=== PATIENT | male | born 1960 | race Caucasian/White ===

== ENCOUNTER → 2016-10-15 | Outpatient (CLI) | payer OTHER, BC ==
[2016-10-15 12:43] LABS: Basophils # (auto) 0 uL; Basophils % (auto) 0.4 % (0.0-2.0); Eosinophils # (auto) 0.2 uL; Eosinophils % (auto) 3.6 % (0.0-7.0); Hematocrit 44.2 % (41.0-53.0); Lymphocytes # (auto) 1.1 uL; Lymphocytes % (auto) 22.1 % (10.0-50.0); Mean Corpuscular Hemoglobin 29.1 pg (28.0-32.0); Mean Corpuscular Hgb Conc. 33.9 g/dL (32.0-36.0); Mean Corpuscular Volume 85.9 fL (80.0-100.0); Mean Platelet Volume 10.1 fL (7.4-10.4); Monocytes # (auto) 0.4 uL; Monocytes % (auto) 7.7 % (0.0-12.0); Neutrophils # (auto) 3.2 uL; Neutrophils % (auto) 66.2 % (37.0-80.0); Platelet Count (auto) 171 10^3/uL (140-450); Red Cell Distribution Width 13.2 % (11.6-16.0); White Blood Cell 4.8 10^3/uL (4.4-10.8)
[2016-10-15 12:48] LABS: Urine Bilirubin Negative (Negative); Urine Color Yellow (Yellow); Urine Glucose Normal (Normal); Urine Ketone Negative (Negative); Urine Nitrite Negative (Negative); Urine Urobilinogen Normal (Negative); Urine pH 5.5 (5.0-8.0)
[2016-10-15 13:04] LABS: Urine Blood 1+ /uL (Negative)
[2016-10-15 14:14] LABS: Albumin 3.9 g/dL (3.4-5.0); BUN/Creatinine Ratio 16.5; Calcium 8.7 mg/dL (8.5-10.1); Potassium 4.1 mmol/L (3.5-5.1); Total Protein 7.3 g/dL (6.4-8.2)
[2016-10-15 14:21] LABS: Bilirubin, Direct 0.3 mg/dL (0-0.2)
== END | disposition home or self-care (01) ==
LOC: LAB 08:45
PROVIDERS: ATTEND Internal Medicine Cardiovascular Disease
DX: I10 Essential (primary) hypertension (principal); E78.00 Pure hypercholesterolemia, unspecified; K74.1 Hepatic sclerosis; E11.9 Type 2 diabetes mellitus without complications; R97.20 Elevated prostate specific antigen [PSA]; R53.81 Other malaise; E03.9 Hypothyroidism, unspecified; D64.9 Anemia, unspecified; E55.9 Vitamin D deficiency, unspecified; N39.0 Urinary tract infection, site not specified
CPT/HCPCS: 36415; 80048; 80061; 80076; 81003; 82306; 83036; 84153; 84403; 84439; 84443; 85025

== ENCOUNTER → 2016-10-27 | Outpatient (CLI) | payer BC | END | disposition home or self-care (01) | LOC: Rad HDHVI 09:27 | PROVIDERS: ATTEND Internal Medicine Cardiovascular Disease | DX: I10 Essential (primary) hypertension (principal); J44.9 Chronic obstructive pulmonary disease, unspecified; N40.0 Benign prostatic hyperplasia without lower urinary tract symptoms; E78.00 Pure hypercholesterolemia, unspecified; Z86.73 Personal history of transient ischemic attack (TIA), and cerebral infarction without residual deficits | CPT/HCPCS: 93306; 93880 ==

== ENCOUNTER → 2017-05-27 | Outpatient (CLI) | payer BC | END | disposition home or self-care (01) | LOC: Rad HDHVI 08:52 | PROVIDERS: ATTEND Internal Medicine Cardiovascular Disease | DX: I10 Essential (primary) hypertension (principal); I27.20 Pulmonary hypertension, unspecified | CPT/HCPCS: 93306 ==

== ENCOUNTER → 2017-11-18 | Outpatient (CLI) | payer BC ==
[2017-11-18 12:21] LABS: Basophils # (auto) 0 uL; Basophils % (auto) 0.9 % (0.0-2.0); Eosinophils # (auto) 0.2 uL; Eosinophils % (auto) 3.3 % (0.0-7.0); Hematocrit 42.8 % (41.0-53.0); Hemoglobin 14.9 g/dL (13.5-17.5); Lymphocytes # (auto) 1.2 uL; Lymphocytes % (auto) 26.5 % (10.0-50.0); Mean Corpuscular Hemoglobin 29.8 pg (28.0-32.0); Mean Corpuscular Hgb Conc. 34.8 g/dL (32.0-36.0); Mean Corpuscular Volume 85.6 fL (80.0-100.0); Monocytes # (auto) 0.4 uL; Neutrophils # (auto) 2.8 uL; Neutrophils % (auto) 60.3 % (37.0-80.0); Nucleated Red Blood Cells % 0.5 %; Platelet Count (auto) 141 10^3/uL (140-450); Red Cell Distribution Width 13.3 % (11.8-14.3); White Blood Cell 4.6 10^3/uL (4.4-10.8)
[2017-11-18 12:37] LABS: Albumin 3.8 g/dL (3.4-5.0); BUN/Creatinine Ratio 16.3; Bilirubin, Direct 0.2 mg/dL (0-0.2); Bilirubin, Total 0.6 mg/dL (0.2-1.0); Calcium 8.6 mg/dL (8.5-10.1); Potassium 4.3 mmol/L (3.5-5.1); Total Protein 7.7 g/dL (6.4-8.2)
== END | disposition home or self-care (01) ==
LOC: LAB 10:09
PROVIDERS: ATTEND Internal Medicine Cardiovascular Disease
DX: E78.5 Hyperlipidemia, unspecified (principal); D64.9 Anemia, unspecified; E11.9 Type 2 diabetes mellitus without complications; E03.9 Hypothyroidism, unspecified; R53.81 Other malaise; R97.20 Elevated prostate specific antigen [PSA]; J44.9 Chronic obstructive pulmonary disease, unspecified; E78.00 Pure hypercholesterolemia, unspecified
CPT/HCPCS: 36415; 80048; 80061; 80076; 82306; 83036; 84153; 84403; 84443; 85025

== ENCOUNTER → 2018-08-16 | Outpatient (CLI) | payer BC ==
[~2018-08-16] MED LIST: IOHEXOL 350 MG/ML 100ML IJ ONE
[2018-08-16 15:29] VITALS: BP 129/80
[2018-08-16 15:56] VITALS: BP 127/84
== END | disposition home or self-care (01) ==
LOC: Rad HDHVI 15:20
PROVIDERS: ATTEND Internal Medicine Cardiovascular Disease
DX: J98.11 Atelectasis (principal); K76.0 Fatty (change of) liver, not elsewhere classified
CPT/HCPCS: 71260; 82565; G0463; Q9967

== ENCOUNTER → 2020-01-10 | Outpatient (CLI) | payer BC ==
[~2020-01-10] VITALS: Ht 167.6 cm; Wt 101.2 kg
== END | disposition home or self-care (01) ==
LOC: Rad HDHVI 08:01
PROVIDERS: ATTEND Internal Medicine Cardiovascular Disease
DX: R06.02 Shortness of breath (principal); I10 Essential (primary) hypertension; E78.5 Hyperlipidemia, unspecified; Z82.49 Family history of ischemic heart disease and other diseases of the circulatory system
CPT/HCPCS: 78452; 93017; 93306; 96374; A9500

== ENCOUNTER → 2020-09-05 | Outpatient (CLI) | payer BC | END | disposition home or self-care (01) | LOC: Rad HDHVI 10:17 | PROVIDERS: ATTEND Internal Medicine Cardiovascular Disease | DX: J90 Pleural effusion, not elsewhere classified (principal); R06.02 Shortness of breath | CPT/HCPCS: 71046 ==

== ENCOUNTER → 2021-01-21 | Outpatient (CLI) | payer BC ==
[2021-01-21 11:39] LABS: Basophils # (auto) 0.1 10 ^3/uL (0-0.2); Basophils % (auto) 1.3 % (0.0-2.0); Eosinophils # (auto) 0.2 10 ^3/uL (0-0.8); Eosinophils % (auto) 2.3 % (0.0-7.0); Hematocrit 42.8 % (41.0-53.0); Hemoglobin 15.1 g/dL (13.5-17.5); Lymphocytes # (auto) 1.7 10 ^3/uL (0.4-5.4); Lymphocytes % (auto) 23.7 % (10.0-50.0); Mean Corpuscular Hemoglobin 29.8 pg (28.0-32.0); Mean Corpuscular Hgb Conc. 35.4 g/dL (32.0-36.0); Mean Corpuscular Volume 84.1 fL (80.0-100.0); Monocytes # (auto) 0.6 10 ^3/uL (0-1.3); Monocytes % (auto) 8.6 % (0.0-12.0); Neutrophils # (auto) 4.5 10 ^3/uL (1.6-8.6); Neutrophils % (auto) 64.1 % (37.0-80.0); Platelet Count (auto) 159 10^3/uL (140-450); Red Blood Cells 5.08 10^6/uL (4.5-5.90); Red Cell Distribution Width 13.8 % (11.8-14.3); White Blood Cell 7.1 10^3/uL (4.4-10.8)
[2021-01-21 11:41] LABS: Urine Blood TRACE /uL (Negative); Urine Specific Gravity 1.012 (1.001-1.035)
[2021-01-21 12:04] LABS: BUN/Creatinine Ratio 14.9; Bilirubin, Direct 0.3 mg/dL (0-0.2); Total Protein 7.6 g/dL (6.4-8.2)
== END | disposition home or self-care (01) ==
LOC: LAB 10:36
PROVIDERS: ATTEND Internal Medicine Cardiovascular Disease
DX: C61 Malignant neoplasm of prostate (principal); D51.3 Other dietary vitamin B12 deficiency anemia; I10 Essential (primary) hypertension; E11.9 Type 2 diabetes mellitus without complications; E55.9 Vitamin D deficiency, unspecified; D64.9 Anemia, unspecified; R00.2 Palpitations; R53.1 Weakness; R30.0 Dysuria
CPT/HCPCS: 36415; 80048; 80061; 80076; 81003; 82306; 83036; 84153; 84403; 84443; 85025

== ENCOUNTER → 2022-03-09 | Outpatient (CLI) | payer BC ==
[2022-03-09 08:18] VITALS: BP 136/79
[2022-03-09 08:44] VITALS: BP 125/76
== END | disposition home or self-care (01) ==
LOC: Rad HDHVI 08:09
PROVIDERS: ATTEND Internal Medicine Cardiovascular Disease
DX: R10.9 Unspecified abdominal pain (principal); Z84.1 Family history of disorders of kidney and ureter
CPT/HCPCS: 74177; G0463; Q9967

== ENCOUNTER 2024-12-13 08:45 | Inpatient (IN) | payer BC ==
[~2024-12-13] VITALS: Ht 167.6 cm; Wt 103.9 kg
--- NOTE | 2024-12-13 09:19 | ED.PDOC ---
Musculoskeletal HPI Comments 64 y/o M, with no prior medical history presents to the ED for CC of bilateral arm numbness. Patient states, that he has been experiencing bilateral arm numbness/tingling onset, [id number]. Patient comments, that numbness and tingling started in his fingertips and has now radiated upward into his shoulders. Patient endorses, seeing his PCP for symptoms and having an appointment with a neurologist however, symptoms have now intensified. Patient denies injury, trauma, or leg swelling. No other symptoms or modifying factors present at this time. Chief Complaint: Upper Extremity Time Seen by MD: 09:10 Primary Care Provider: CONG Diaz Notes: Nurses Notes, Medications, Allergies Allergies: Coded Allergies: NO KNOWN ALLERGIES (Verified , 12/08/09) Information Source: Patient Mode of Arrival: Ambulatory Location: Bilateral Extremity Location: Arm Timing: Months Prehospital treatment: None Severity: Moderate Able to Move Extremity: Yes Bear Weight: Fully Pain: None Circumstances: Spontaneous Onset of Symptoms: Spontaneous DVT Risk Factors: NONE Last Tetanus: Unknown Past Medical History PAST MEDICAL HISTORY: Denies Surgical History: Denies all surgeries Family History Family History: Unknown Social History Smoker: Non-Smoker Alcohol: Denies ETOH Use Drugs: Denies Drug Use Lives In: Home Constitutional: denies: chills, diaphoresis, fatigue, fever, malaise, sweats, weakness, others EENTM: denies: blurred vision, double vision, ear bleeding, ear discharge, ear drainage, ear pain, ear ringing, eye pain, eye redness, hearing loss, mouth pain, mouth swelling, nasal discharge, nose bleeding, nose congestion, nose pain, photophobia, tearing, throat pain, throat swelling, voice changes, others Respiratory: denies: cough, hemoptysis, orthopnea, SOB at rest, shortness of breath, SOB with excertion, stridor, wheezing, others Cardiovascular: denies: chest pain, dizzy spells, diaphoresis, Dyspnea on exertion, edema, irregular heart beat, left arm pain, lightheadedness, palpitations, PND, syncope, others Gastrointestinal: denies: abdomen distended, abdominal pain, blood streaked bowels, constipated, diarrhea, dysphagia, difficulty swallowing, hematemesis, melena, nausea, poor appetite, poor fluid intake, rectal bleeding, rectal pain, vomiting, others Genitourinary: denies: burning, dysuria, flank pain, frequency, hematuria, incontinence, penile discharge, penile sore, pain, testicle pain, testicle swelling, urgency, others Neurological: reports: numbness, tingling; denies: dizziness, fainting, headache, left sided numbness, left sided weakness, paresthesia, pre-existing deficit, right sided numbness, right sided weakness, seizure, speech problems, tremors, weakness, others Musculoskeletal: denies: back pain, gout, joint pain, joint swelling, muscle pain, muscle stiffness, neck pain, others Integumetry: denies: bruises, change in color, change in hair/nails, dryness, laceration, lesions, lumps, rash, wounds, others Allergic/Immunocompromised: denies: Difficulty Healing, Frequent Infections, Hives, Itching, others Hematologic/Lymphatic: denies: anemia, blood clots, easy bleeding, easy bruising, swollen glands, others Endocrine: denies: excessive hunger, excessive sweating, excessive thirst, excessive urination, flushing, intolerance to cold, intolerance to heat, unexplained weight gain, unexplained weight loss, others Psychiatric: denies: anxiety, bipolar disorder, depression, hopeless, panic disorder, schizophrenia, sleepless, suicidal, others All Other Systems: Reviewed and Negative Physical Exam General Appearance: No Apparent Distress, Normal HEENT: Normal ENT Inspection, Pharynx Normal Neck: Full Range of Motion, Non-Tender, Normal, Normal Inspection Respiratory: Chest Non-Tender, Lungs Clear, No Accessory Muscle Use, No Respiratory Distress, Normal Breath Sounds Cardiovascular: No Edema, No Murmur, No Gallop, Normal Peripheral Pulses, Regular Rate/Rhythm Breast Exam: Deferred Gastrointestinal: No Organomegaly, Non Tender, No Pulsatile Mass, Normal Bowel Sounds, Soft Genitalia: Deferred Pelvic: Deferred Rectal: Deferred Extremities: No calf tenderness, Normal capillary refill, Normal inspection, Normal range of motion, Non-tender, No pedal edema Musculoskeletal : Apperance: Normal Neurologic: Alert, senior project accountant II-XII nml as Tested, No Motor Deficits, Normal Affect, Normal Mood, No Sensory Deficits Cerebellar Function: Normal Reflexes: Normal Skin: Dry, Normal Color, Warm Lymphatic: No Adenopathy Was a procedure done? Was a procedure done?: No Differential Diagnosis EXT Differential Diagnosis: Compartment Syndrome, Neurovascular injury X-Ray, Labs, Meds, VS Vital Signs Date Time Temp Pulse Resp B/P (MAP) Pulse Ox O2 Delivery O2 Flow Rate FiO2 12/13/24 10:33 59 18 96 Room Air 12/13/24 10:28 98.0 59 18 138/84 (102) 96 98.0 12/13/24 08:52 98.2 59 18 127/93 (104) 98 98.2 Lab Test 12/13/24 10:07 12/13/24 09:15 Range/Units Urine Color Light-yellow Yellow Urine Clarity Clear Clear Urine pH 6.5 5.0-9.0 Urine Specific [place] 1.018 1.001-1.035 Urine Protein Negative Negative Urine Ketones Negative Negative Urine Blood Trace H Negative /uL Urine Nitrite Negative Negative Urine Bilirubin Negative Negative Urine Urobilinogen Normal Negative mg/dL Urine Leukocyte Esterase Negative Negative /uL Urine RBC 5 0 - 3 /hpf Urine Microscopic WBC < 1 0-3 /HPF Urine Squamous Epithelial Cells None seen <5 /hpf Urine Bacteria None seen None Seen /hpf Urine Mucus Few None Seen Urine Glucose Normal Normal mg/dL White Blood Count 7.0 4.4-10.8 10^3/uL Red Blood Count 5.38 4.5-5.90 10^6/uL Hemoglobin 15.8 13.5-17.5 g/dL Hematocrit 44.9 41.0-53.0 % Mean Corpuscular Volume 83.6 80.0-100.0 fL Mean Corpuscular Hemoglobin 29.3 28.0-32.0 pg Mean Corpuscular Hemoglobin Concent 35.1 32.0-36.0 g/dL Red Cell Distribution Width 13.7 11.8-14.3 % Platelet Count 157 140-450 10^3/uL Mean Platelet Volume 8.6 6.9-10.8 fL Neutrophils (%) (Auto) 68.6 37.0-80.0 % Lymphocytes (%) (Auto) 20.4 10.0-50.0 % Monocytes (%) (Auto) 8.0 0.0-12.0 % Eosinophils (%) (Auto) 2.1 0.0-7.0 % Basophils (%) (Auto) 0.9 0.0-2.0 % Neutrophils # (Auto) 4.8 1.6-8.6 10 ^3/uL Lymphocytes # (Auto) 1.4 0.4-5.4 10 ^3/uL Monocytes # (Auto) 0.6 0-1.3 10 ^3/uL Eosinophils # (Auto) 0.1 0-0.8 10 ^3/uL Basophils # (Auto) 0.1 0-0.2 10 ^3/uL Nucleated Red Blood Cells 0.1 % Sodium Level 140 136-145 mmol/L Potassium Level 4.1 3.5-5.1 mmol/L Chloride Level 107 98-107 mmol/L Carbon Dioxide Level 26 20-31 mmol/L Anion Gap 7 5-15 Blood Urea Nitrogen 12 9-23 mg/dL Creatinine 0.86 0.700-1.30 mg/dL Glomerular Filtration Rate Calc 98 >90 mL/min BUN/Creatinine Ratio 14.0 10.0-20.0 Serum Glucose 128 H 74-106 mg/dL Calcium Level 9.8 8.7-10.4 mg/dL Troponin I High Sensitivity < 3 L </=54 ng/L Time of 1ST Reevaluation: 09:40 Reevaluation 1ST: Unchanged Patient Education/Counseling: Diagnosis, Treatment Family Education/Counseling: No Family Present Departure 1 Departure Time of Disposition: 10:53 (Patient presents with bilateral upper extremity paresthesias. CT head is benign chest x-ray is benign labs seem benign. With the patient for further workup expert consultation) Impression: Primary Impression: Paresthesia of upper extremity Additional Impression: Generalized muscle weakness Disposition: ADMITTED INPATIENT Admit to: Med Surg Condition: Serious Critical Care Note Critical Care Time?: No Stability Stability form required: No Heart Score Heart Score: Heart Score Response (Comments) Value History N/A 0 EKG N/A 0 Age N/A 0 Risk Factors N/A 0 Troponin N/A 0 Total 0 I personally scribed for DEMETRIUS LIANG MD ([email or web address]) on 12/13/24 at 09:19. Electronically submitted by Sharita Shaw ([email or web address]). DEMETRIUS LIANG MD December 13, 2024 09:19
[2024-12-13 09:29] LABS: Basophils # (auto) 0.1 10 ^3/uL (0-0.2); Basophils % (auto) 0.9 % (0.0-2.0); Eosinophils # (auto) 0.1 10 ^3/uL (0-0.8); Eosinophils % (auto) 2.1 % (0.0-7.0); Hematocrit 44.9 % (41.0-53.0); Hemoglobin 15.8 g/dL (13.5-17.5); Lymphocytes # (auto) 1.4 10 ^3/uL (0.4-5.4); Lymphocytes % (auto) 20.4 % (10.0-50.0); Mean Corpuscular Volume 83.6 fL (80.0-100.0); Monocytes # (auto) 0.6 10 ^3/uL (0-1.3); Neutrophils # (auto) 4.8 10 ^3/uL (1.6-8.6); Neutrophils % (auto) 68.6 % (37.0-80.0); Nucleated Red Blood Cells % 0.1 %; Red Blood Cells 5.38 10^6/uL (4.5-5.90)
[2024-12-13 09:30] LABS: Mean Corpuscular Hemoglobin 29.3 pg (28.0-32.0); Mean Corpuscular Hgb Conc. 35.1 g/dL (32.0-36.0); Platelet Count (auto) 157 10^3/uL (140-450); Red Cell Distribution Width 13.7 % (11.8-14.3)
[2024-12-13 09:39] LABS: Chloride 107 mmol/L (98-107); Potassium 4.1 mmol/L (3.5-5.1); Sodium 140 mmol/L (136-145)
[2024-12-13 09:40] LABS: Anion Gap 7 (5-15); Calcium 9.8 mg/dL (8.7-10.4); Carbon Dioxide 26 mmol/L (20-31)
[2024-12-13 09:45] LABS: Blood Urea Nitrogen 12 mg/dL (9-23)
[2024-12-13 09:50] LABS: Glucose 128 mg/dL (74-106)
[2024-12-13 10:21] LABS: Urine Bacteria None Seen /hpf (None Seen)
[2024-12-13 10:36] LABS: Urine Blood TRACE /uL (Negative); Urine Clarity Clear (Clear); Urine Color Light-Yellow (Yellow); Urine Mucus FEW (None Seen); Urine Protein, UAD Negative (Negative); Urine Specific Gravity 1.018 (1.001-1.035); Urine Squamous Epithelial Cell None Seen /hpf (<5); Urine Urobilinogen Normal (Negative); Urine pH 6.5 (5.0-9.0)
[2024-12-13 10:40] LABS: Urine WBC < 1 /HPF (0-3)
--- NOTE | 2024-12-13 10:48 | DVH ---
EXAM: XY CHEST PORTABLE Indication: parasthesias Technique: Single frontal view of the chest was obtained Comparison: None FINDINGS: Lines and Tubes: None Lungs: No focal consolidation. Pleura: No effusion. No pneumothorax. Cardiomediastinal contours: Unremarkable Bones: No acute osseous abnormality. IMPRESSION: No acute cardiopulmonary disease.
--- NOTE | 2024-12-13 10:51 | DVH ---
EXAM: CT HEAD WITHOUT CONTRAST INDICATION: parasthesias TECHNIQUE: CT of the head without intravenous contrast. Radiation Dose : 1. Head: CT Dose: CTDI volume is 63.98 mGy. Dose-length product is 1260.54 mGy*cm The dose indicators for CT are the volume Computed Tomography (CT) Dose Index (CTDIvol) and the Dose Length Product (DLP), and are measured in units of mGy and mGy-cm, respectively. These indicators are not patient dose, but values generated from the CT scanner acquisition factors. The report includes radiation exposure data for exposures received during this examination. COMPARISON: None FINDINGS: There is no evidence of acute intracranial hemorrhage, extra-axial collection, mass effect, midline s hift, herniation or hydrocephalus. The ventricles, sulci and cisterns are age appropriate. The brar-white differentiation is intact. Patchy periventricular and subcortical white matter hypoattenuation is nonspecific but may be related to small vessel ischemic disease. Moderate mucosal opacification of the left maxillary sinus. The surrounding soft tissues and osseous structures are unremarkable. IMPRESSION: No acute intracranial abnormality. Moderate mucosal opacification of the left maxillary sinus. Radiation optimization: All CT scans at this facility use at least one of these dose optimization mode hniques: automated exposure control mA and/or kV adjustment per patient size (includes targeted exam s where dose is matched to clinical indication) or iterative reconstruction.
[2024-12-13] MEDS ORDERED: ONDANSETRON HCL 4 MG/2 ML VIAL IV PRN (11:15)
[2024-12-13] MEDS: cefTRIAXone 1GM/50ML D5W 50 ML IV SCH (11:15)
[2024-12-13] MEDS ORDERED: FIN5T PO (11:42)
[2024-12-13] MEDS ORDERED: AMLO1TAB22 PO (11:42)
[2024-12-13] MEDS ORDERED: METO-289 PO (11:42)
[2024-12-13] MEDS ORDERED: ZOLP10TA6 PO (11:42)
[2024-12-13] MEDS ORDERED: BUPR100T16 PO (11:42)
[2024-12-13] MEDS ORDERED: TERA1CAP50 PO (11:42)
--- NOTE | 2024-12-13 11:45 | DVHHP2 ---
History of Present Illness Reason for Visit: Bilateral upper extremity numbness History of Present Illness Maxi Hancock is a 64-year-old male with past medical history of hypertension, kidney stones, BPH and hernia repair who presents to the ED with bilateral upper arm numbness and tingling x1 month. He reports that he was given a contact for a neurologist, called him and stated that he would get back with him that was 2 weeks ago. Patient also states that he has been having a cough for 1 week with associated shoulder pain and productive yellow phlegm. He denies any recent sick contacts. Patient denies any recent trauma or injury, recent travels, recent ingestion of spoiled food, chest pain, shortness of breath, fever, chills, lightheadedness, weakness, dizziness, abdominal pain, nausea, or vomiting. Cardiovascular: HTN Past Medical History Kidney stones BPH Past Surgical History: Hernia Repair Family History: Cancer, Other (Mom with breast cancer and dad with ? ALS both ) Smoke: No ALCOHOL: none Drugs: None Lives: with Family Domestic Violence: Neg Review of Systems Respiratory: Cough Musculoskeletal: shoulder pain, hand pain Allergies: Coded Allergies: NO KNOWN ALLERGIES (Verified , 12/08/09) Medications Current Medications Medications Dose Ordered Sig/Tito Route Start Time Stop Time Status Last Admin Dose Admin Ceftriaxone Sodium 50 ml @ 100 mls/hr DAILY@09 IV 12/13/24 11:15 UNV Acetaminophen/ Hydrocodone Bitart 1 tab Q4HP PRN PO 12/13/24 11:15 UNV Ondansetron HCl 4 mg Q4HP PRN IV 12/13/24 11:15 UNV Acetaminophen 650 mg Q6HP PRN PO 12/13/24 11:15 UNV Exam Vital Signs Vital Signs Date Time Temp Pulse Resp B/P (MAP) Pulse Ox O2 Delivery O2 Flow Rate FiO2 12/13/24 10:33 59 18 96 Room Air 12/13/24 10:28 98.0 138/84 (102) 98.0 General Appearance: Alert, Oriented X3, Cooperative, No acute distress HEENT: Atraumatic, PERRLA, EOMI, Mucous membr. moist/pink Respiratory: Clear to auscultation, Normal air movement Cardiovascular: Normal S1, Normal S2, No murmurs Abdominal: Normal bowel sounds, Soft, No tenderness, No hepatospenomegaly Extremities: No clubbing, No cyanosis, Normal pulses Skin: No significant lesion Neuro: Normal gait, Normal speech, Strength at 5/5 X4 ext, Normal tone, Sensation intact Psych/Mental Status: Mental status NL, Mood NL Labs/Xrays Labs Test 12/13/24 10:07 12/13/24 09:15 Range/Units Urine Color Light-yellow Yellow Urine Clarity Clear Clear Urine pH 6.5 5.0-9.0 Urine Specific [place] 1.018 1.001-1.035 Urine Protein Negative Negative Urine Ketones Negative Negative Urine Blood Trace H Negative /uL Urine Nitrite Negative Negative Urine Bilirubin Negative Negative Urine Urobilinogen Normal Negative mg/dL Urine Leukocyte Esterase Negative Negative /uL Urine RBC 5 0 - 3 /hpf Urine Microscopic WBC < 1 0-3 /HPF Urine Squamous Epithelial Cells None seen <5 /hpf Urine Bacteria None seen None Seen /hpf Urine Mucus Few None Seen Urine Glucose Normal Normal mg/dL White Blood Count 7.0 4.4-10.8 10^3/uL Red Blood Count 5.38 4.5-5.90 10^6/uL Hemoglobin 15.8 13.5-17.5 g/dL Hematocrit 44.9 41.0-53.0 % Mean Corpuscular Volume 83.6 80.0-100.0 fL Mean Corpuscular Hemoglobin 29.3 28.0-32.0 pg Mean Corpuscular Hemoglobin Concent 35.1 32.0-36.0 g/dL Red Cell Distribution Width 13.7 11.8-14.3 % Platelet Count 157 140-450 10^3/uL Mean Platelet Volume 8.6 6.9-10.8 fL Neutrophils (%) (Auto) 68.6 37.0-80.0 % Lymphocytes (%) (Auto) 20.4 10.0-50.0 % Monocytes (%) (Auto) 8.0 0.0-12.0 % Eosinophils (%) (Auto) 2.1 0.0-7.0 % Basophils (%) (Auto) 0.9 0.0-2.0 % Neutrophils # (Auto) 4.8 1.6-8.6 10 ^3/uL Lymphocytes # (Auto) 1.4 0.4-5.4 10 ^3/uL Monocytes # (Auto) 0.6 0-1.3 10 ^3/uL Eosinophils # (Auto) 0.1 0-0.8 10 ^3/uL Basophils # (Auto) 0.1 0-0.2 10 ^3/uL Nucleated Red Blood Cells 0.1 % Sodium Level 140 136-145 mmol/L Potassium Level 4.1 3.5-5.1 mmol/L Chloride Level 107 98-107 mmol/L Carbon Dioxide Level 26 20-31 mmol/L Anion Gap 7 5-15 Blood Urea Nitrogen 12 9-23 mg/dL Creatinine 0.86 0.700-1.30 mg/dL Glomerular Filtration Rate Calc 98 >90 mL/min BUN/Creatinine Ratio 14.0 10.0-20.0 Serum Glucose 128 H 74-106 mg/dL Calcium Level 9.8 8.7-10.4 mg/dL Troponin I High Sensitivity < 3 L </=54 ng/L EXAM: CT HEAD WITHOUT CONTRAST INDICATION: parasthesias TECHNIQUE: CT of the head without intravenous contrast. Radiation Dose : 1. Head: CT Dose: CTDI volume is 63.98 mGy. Dose-length product is 1260.54 mGy*cm The dose indicators for CT are the volume Computed Tomography (CT) Dose Index (CTDIvol) and the Dose Length Product (DLP), and are measured in units of mGy and mGy-cm, respectively. These indicators are not patient dose, but values generated from the CT scanner acquisition factors. The report includes radiation exposure data for exposures received during this examination. COMPARISON: None FINDINGS: There is no evidence of acute intracranial hemorrhage, extra-axial collection, mass effect, midline shift, herniation or hydrocephalus. The ventricles, sulci and cisterns are age appropriate. The brar-white differentiation is intact. Patchy periventricular and subcortical white matter hypoattenuation is nonspecific but may be related to small vessel ischemic disease. Moderate mucosal opacification of the left maxillary sinus. The surrounding soft tissues and osseous structures are unremarkable. IMPRESSION: No acute intracranial abnormality. EXAM: XY CHEST PORTABLE Indication: parasthesias Technique: Single frontal view of the chest was obtained Comparison: None FINDINGS: Lines and Tubes: None Lungs: No focal consolidation. Pleura: No effusion. No pneumothorax. Cardiomediastinal contours: Unremarkable Bones: No acute osseous abnormality. IMPRESSION: No acute cardiopulmonary disease. Assessment/Plan Assessment/Plan Assessment Bilateral upper extremity numbness rule out stroke versus neuropathy Sinus bradycardia Obesity Cough with productive phlegm rule out pneumonia versus COVID versus influenza Probable sinusitis History of hypertension History of kidney stones History of BPH History of hernia repair Plan Admit to tele Influenza test COVID test UA CT head noted Chest x-ray noted Troponin negative Echo ordered UDS Mag level IV antibiotics-ceftriaxone Carotid duplex Antiemetics Pain management Diet Home medications reconciled DVT prophylaxis - SCDs PUD prophylaxis-not indicated no history of GERD or GI bleed Discussed plan of care with patient and nurse Counseled patient on lifestyle modifications, diet, and exercise Neurology consult by ED Plan discussed with: Patient My Orders Orders - SKYLER DE ANDA Procedure Category Date Status Time Echo 2d Mode Cardiac US 12/13/24 Logged DOP 11:15 Ceftriaxone 1gm/50ml PHA 12/13/24 Logged D5w (Rocephin) 11:15 Admit ADMIT 12/13/24 Transmitted 11:15 Allergies JEANNIE 12/13/24 In Process 11:15 Code Status CODE 12/13/24 Transmitted 11:15 Hydrocodone-Acet PHA 12/13/24 Logged 5/325mg Tab ([place] 11:15 Ondansetron Hcl PHA 12/13/24 Logged (Zofran) 11:15 Complete Blood Count LAB 12/14/24 Verified 04:00 Comprehensive LAB 12/14/24 Verified Metabolic Panel 04:00 Cardiac DIET 12/13/24 Transmitted Diet-2gna,Lofat,Lochol Lunch Acetaminophen Tablet PHA 12/13/24 Logged (Tylenol Tablet) 11:15 Sequential JEANNIE 12/13/24 In Process Compression Device Thyroid Stimulating LAB 12/13/24 Logged Hormone 11:15 Lipid Panel LAB 12/13/24 Logged 11:15 Magnesium LAB 12/13/24 Logged 11:15 Amlodipine Tablet PHA 12/14/24 Transmitted (Norvasc Tablet) 10:00 Finasteride Tablet PHA 12/14/24 Transmitted (Proscar Tablet) 10:00 Metoprolol Xl PHA 12/14/24 Transmitted Succinate (Toprol Xl) 10:00 Terazosin Hcl (Hytrin) PHA 12/14/24 Transmitted 10:00 (Nf) Bupropion Hcl PHA 12/14/24 Transmitted (Bupropion Hcl Er) 10:00 Date of Service: December 13, 2024 Billing Provider: SKYLER DE ANDA Common Visit Codes: [id number] INP/OBS CARE (HIGH) SKYLER DE ANDA [facility] December 13, 2024 11:45
[2024-12-13 12:13] LABS: Amphetamine Screen, Urine Neg (NEGATIVE); Barbiturate Scree,Urine Neg (NEGATIVE); Benzodiazephine Screen, Urine Neg (NEGATIVE); Cannabinoid Screen, Urine Neg (NEGATIVE); Cocaine Screen, Urine Neg (NEGATIVE); Opiate Scree,Urine Neg (NEGATIVE); Phencyclidine Screen, Urine Neg (NEGATIVE)
--- NOTE | 2024-12-13 13:20 | DVH ---
Carotid Duplex Date: 12/13/2024 12:29 PM Clinical History: bue numbness Comparison: None Technique: Duplex Doppler evaluation of the extracranial carotid and vertebral arteries including col or Doppler and spectral/pulsed waveform analysis was performed. Findings: RIGHT SIDE: The peak systolic velocities are 72 cm/s in the distal CCA and 81 cm/s in the proximal ICA.The ICA/CC A ratio is less than 1. The external carotid artery is patent with peak systolic velocity of 68 cm/s proximally. There is appropriate antegrade flow in the right vertebral artery. LEFT SIDE: The peak systolic velocities are 74 cm/s in the distal CCA and 100 cm/s in the proximal ICA.. The ICA /CCA ratio is less than 2. The external carotid artery is patent with peak systolic velocity of 85 cm/s proximally. There is appropriate antegrade flow in the left vertebral artery. Mild atherosclerotic vascular disease of the bilateral carotid arteries. IMPRESSION: No hemodynamically significant stenosis noted in the right carotid system. No hemodynamically significant stenosis noted in the left carotid system. Reference: Radiology 2003; 229:[id number]
[2024-12-13 14:10] LABS: COVID19 ANTIGEN SOFIA FIA NEGATIVE (NEGATIVE); Rapid Influenza A Negative (Negative); Rapid Influenza B Negative (Negative)
[2024-12-13] MEDS: ACETAMINOPHEN 325 MG TAB PO PRN (18:11)
[2024-12-13 18:20] VITALS: BP 139/75; PULSE 58; RESP 15; TEMP 98; O2SAT 97
[2024-12-13 19:30] VITALS: BP 139/75; PULSE 57; RESP 21; TEMP 97.5; O2SAT 98
[2024-12-13 21:00] VITALS: BP 139/75; PULSE 54; RESP 18; TEMP 97.3; O2SAT 97
[2024-12-13] MEDS: TERAZOSIN HCL 1 MG CAP PO SCH (21:23)
[2024-12-13] MEDS: FINASTERIDE 5 MG TAB PO SCH (21:23)
[2024-12-13 22:20] VITALS: PULSE 54
[2024-12-14] VITALS (8 sets, daily range): BP systolic 128–145; BP diastolic 69–82; PULSE 51–80; RESP 16–19; TEMP 97.6–97.9; O2SAT 95–99
[2024-12-14] MEDS: HYDROcodone-ACET 5/325MG TAB PO PRN (00:19)
[2024-12-14 07:24] LABS: Basophils # (auto) 0 10 ^3/uL (0-0.2); Basophils % (auto) 0.6 % (0.0-2.0); Eosinophils # (auto) 0.1 10 ^3/uL (0-0.8); Eosinophils % (auto) 1.8 % (0.0-7.0); Hematocrit 44.4 % (41.0-53.0); Hemoglobin 15.4 g/dL (13.5-17.5); Lymphocytes # (auto) 1.1 10 ^3/uL (0.4-5.4); Lymphocytes % (auto) 15.3 % (10.0-50.0); Mean Corpuscular Hemoglobin 29.1 pg (28.0-32.0); Mean Corpuscular Hgb Conc. 34.7 g/dL (32.0-36.0); Mean Corpuscular Volume 83.8 fL (80.0-100.0); Monocytes # (auto) 0.5 10 ^3/uL (0-1.3); Monocytes % (auto) 7.7 % (0.0-12.0); Neutrophils # (auto) 5.3 10 ^3/uL (1.6-8.6); Neutrophils % (auto) 74.6 % (37.0-80.0); Nucleated Red Blood Cells % 0.2 %; Platelet Count (auto) 152 10^3/uL (140-450); Red Blood Cells 5.29 10^6/uL (4.5-5.90); Red Cell Distribution Width 13.7 % (11.8-14.3)
[2024-12-14 07:40] LABS: Albumin 4.6 g/dL (3.2-4.8); Alkaline Phosphatase 81 U/L (46-116); Anion Gap 10 (5-15); Aspartate Aminotransferase 19 U/L (13-40); BUN/Creatinine Ratio 16.1 (10.0-20.0); Blood Urea Nitrogen 14 mg/dL (9-23); Calcium 9.9 mg/dL (8.7-10.4); Carbon Dioxide 23 mmol/L (20-31); Chloride 106 mmol/L (98-107); Sodium 139 mmol/L (136-145); Total Protein 7.4 g/dL (5.7-8.2)
[2024-12-14 07:45] LABS: Alanine Aminotransferase 43 U/L (7-40); Glucose 133 mg/dL (74-106)
[2024-12-14] MEDS: BUPROPION 100 MG PO SCH (08:36)
[2024-12-14] MEDS: amLODIPine BESYLATE 5 MG TAB PO SCH (08:39)
[2024-12-14] MEDS: METOPROLOL SUCCINATE XL 50 MG TAB PO SCH (08:41)
[2024-12-14] MEDS ORDERED: FINASTERIDE 5 MG TAB PO SCH (10:00)
[2024-12-14] MEDS ORDERED: TERAZOSIN HCL 1 MG CAP PO SCH (10:00)
--- NOTE | 2024-12-14 11:35 | DVHPN2 ---
Subjective Patient continues to report having bilateral upper extremity paresthesia. Patient was also reports have shooting pain down both shoulders when he sneezes and coughs. Reviewed: Care Plan, H&P, Labs, Medications Changes from previous H/P or p: No Changes General: Per HPI Respiratory: Cough Musculoskeletal: shoulder pain, hand pain Objective Vitals Vital Signs Date Time Temp Pulse Resp B/P (MAP) Pulse Ox O2 Delivery O2 Flow Rate FiO2 12/14/24 08:58 97.9 57 18 145/69 (94) 98 97.9 12/14/24 08:00 Room Air* 0 21 Intake/Output Intake and Output 12/14/24 07:00 Intake Total 400 ml Balance 400 ml Intake Oral 400 ml # Voids 1 General Appearance: Alert, Oriented X3, Cooperative, mild distress HEENT: Atraumatic, PERRLA Lungs: Clear to auscultation, Normal air movement Cardiovascular: Normal S1, Normal S2 Abdomen: Normal bowel sounds, Soft, No tenderness Musculoskeletal: Normal sensory function, Normal motor function Skin: Dry, Intact Psych/Mental Status: Mental status NL, Mood NL Medications Current Medications Medications Dose Ordered Sig/Tito Route Start Time Stop Time Status Last Admin Dose Admin Ceftriaxone Sodium 50 ml @ 100 mls/hr DAILY@09 IV 12/13/24 11:15 12/14/24 08:38 100 MLS/HR Acetaminophen/ Hydrocodone Bitart 1 tab Q4HP PRN PO 12/13/24 11:15 12/14/24 00:19 1 TAB Ondansetron HCl 4 mg Q4HP PRN IV 12/13/24 11:15 Acetaminophen 650 mg Q6HP PRN PO 12/13/24 11:15 12/13/24 18:11 650 MG Amlodipine Besylate 5 mg DAILY PO 12/14/24 10:00 12/14/24 08:39 5 MG Metoprolol Succinate 50 mg DAILY PO 12/14/24 10:00 12/14/24 08:41 50 MG Patient Own Medication 1 DAILY PO 12/14/24 10:00 Finasteride 5 mg HS PO 12/13/24 22:00 12/13/24 21:23 5 MG Terazosin HCl 1 mg HS PO 12/13/24 22:00 12/13/24 21:23 1 MG Laboratory Results Laboratory Tests 12/14/24 06:52 Chemistry Test 12/14/24 06:52 Albumin 4.6 g/dL (3.2-4.8) Calcium Level 9.9 mg/dL (8.7-10.4) Total Protein 7.4 g/dL (5.7-8.2) LFT Test 12/14/24 06:52 Alanine Aminotransferase (ALT) 43 U/L (7-40) H Alkaline Phosphatase 81 U/L (46-116) Aspartate Amino Transferase (AST) 19 U/L (13-40) Total Bilirubin 1.0 mg/dL (0.2-1.0) Urinalysis Test 12/13/24 10:07 Urine Color Light-yellow (Yellow) Urine Clarity Clear (Clear) Urine pH 6.5 (5.0-9.0) Urine Specific [place] 1.018 (1.001-1.035) Urine Protein Negative (Negative) Urine Ketones Negative (Negative) Urine Blood Trace /uL (Negative) H Urine Nitrite Negative (Negative) Urine Bilirubin Negative (Negative) Urine Urobilinogen Normal mg/dL (Negative) Urine Leukocyte Esterase Negative /uL (Negative) Urine RBC 5 /hpf (0 - 3) Urine Microscopic WBC < 1 /HPF (0-3) Urine Squamous Epithelial Cells None seen /hpf (<5) Urine Bacteria None seen /hpf (None Seen) Urine Mucus Few (None Seen) Urine Glucose Normal mg/dL (Normal) Labs and/or images reviewed: Labs reviewed by me, Image(s) reviewed by me Assessment/Plan Assessment/Plan Impression: -CVA ruled out -obesity -primary hypertension -BPH -probable cervical spinal stenosis -dyslipidemia Plan: -CT scan of the neck -continue Hytrin and finasteride -antihypertensives -further course of management per findings of CAT scan Total time spent with patient discussing and formulating plan of care: 35 minutes. This medical document was created using an electronic medical record system with [employer] dictation system. Although this document has been carefully reviewed, there may still be some phonetic and typographical errors. These areas are purely typographical due to imperfections of the software programs, and do not reflect any compromise in the patient's medical care. Plan discussed with: Patient, Other (RN) My Orders Orders - LIZ SCHMID [employer] Procedure Category Date Status Time Zolpidem Tartrate PHA 12/14/24 Transmitted (Ambien) 11:[address] 12/14/24 Transmitted Contrast 11:29 Date of Service: December 14, 2024 Billing Provider: LIZ SCHMID NP Common Visit Codes: [id number] INP/OBS CARE(HIGH) LIZ SCHMID NP December 14, 2024 11:35
--- NOTE | 2024-12-14 13:50 | DVH ---
Indication: Bilateral upper ext. paresthesia, rule out cervical stenosis Technique: CT axial images of the cervical spine are obtained without contrast. Coronal and sagittal reformats were obtained. Radiation Dose Information: CTDI volume is 22.55 mGy. Dose-length product is 570.04 mGy*cm Comparison: None FINDINGS: Cervical vertebral body heights maintained. Moderate multilevel disc space narrowing most pronounced at C4-5, C5-6 and C6-7. No prevertebral edema. [id number] facet hypertrophic changes. Atlant ooccipital, atlantoaxial articulations intact. 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 [id number] bilateral neural foraminal stenosis. C4-5: Moderate to advanced right and moderate left neural foraminal stenosis. C5-6: Moderate to advanced bilateral neural foraminal stenosis. C6-7: Moderate bilateral neural foraminal stenosis. C7-T1: No high-grade neural foraminal stenosis. There is a large disc protrusion /ventral epidural space lesion measuring 1.5 x 0.7 cm at the C3-4 le august. IMPRESSION: 1. Moderate cervical degenerative disc disease. 2. Large disc protrusion / ventral epidural space lesion at C3-4 which compresses upon the thecal sac / spinal cord resulting in spinal canal stenosis. Recommend MRI cervical spine with and without cont rast to further evaluate. 3. Multilevel neural foraminal stenosis as described.
[2024-12-14] MEDS: ZOLPIDEM TARTRATE 5 MG TAB PO PRN (21:38)
[2024-12-15] VITALS (8 sets, daily range): BP systolic 115–135; BP diastolic 66–76; PULSE 58–72; RESP 16–20; TEMP 97.2–97.9; O2SAT 95–97
--- NOTE | 2024-12-15 13:59 | DVHPN2 ---
Subjective still having parasthesia. ct with disc protrusoin. starting decadron, MRI c spine. Reviewed: Care Plan, H&P, Labs, Medications Changes from previous H/P or p: No Changes General: Per HPI Respiratory: Cough Musculoskeletal: shoulder pain, hand pain Objective Vitals Vital Signs Date Time Temp Pulse Resp B/P (MAP) Pulse Ox O2 Delivery O2 Flow Rate FiO2 12/15/24 11:58 97.4 60 16 120/76 (91) 97 97.4 12/15/24 08:00 Room Air* 0 21 Intake/Output Intake and Output 12/15/24 07:00 Intake Total 1390 ml Balance 1390 ml Intake Oral 1340 ml IV Total 50 ml # Voids 6 # Bowel Movements 1 General Appearance: Alert, Oriented X3, Cooperative, mild distress HEENT: Atraumatic, PERRLA Lungs: Clear to auscultation, Normal air movement Cardiovascular: Normal S1, Normal S2 Abdomen: Normal bowel sounds, Soft, No tenderness Musculoskeletal: Normal sensory function, Normal motor function Skin: Dry, Intact Psych/Mental Status: Mental status NL, Mood NL Medications Current Medications Medications Dose Ordered Sig/Tito Route Start Time Stop Time Status Last Admin Dose Admin Acetaminophen/ Hydrocodone Bitart 1 tab Q4HP PRN PO 12/13/24 11:15 12/15/24 10:06 1 TAB Ondansetron HCl 4 mg Q4HP PRN IV 12/13/24 11:15 Acetaminophen 650 mg Q6HP PRN PO 12/13/24 11:15 12/13/24 18:11 650 MG Amlodipine Besylate 5 mg DAILY PO 12/14/24 10:00 12/15/24 10:02 5 MG Metoprolol Succinate 50 mg DAILY PO 12/14/24 10:00 12/15/24 10:04 50 MG Patient Own Medication 1 DAILY PO 12/14/24 10:00 Finasteride 5 mg HS PO 12/13/24 22:00 12/14/24 21:38 5 MG Terazosin HCl 1 mg HS PO 12/13/24 22:00 12/14/24 21:41 1 MG Zolpidem Tartrate 10 mg HSPRN PRN PO 12/14/24 11:30 12/14/24 21:38 10 MG Dexamethasone Sodium Phosphate 6 mg DAILY IV 12/16/24 10:00 Laboratory Results Laboratory Tests 12/14/24 06:52 Urinalysis Test 12/13/24 10:07 Urine Color Light-yellow (Yellow) Urine Clarity Clear (Clear) Urine pH 6.5 (5.0-9.0) Urine Specific [place] 1.018 (1.001-1.035) Urine Protein Negative (Negative) Urine Ketones Negative (Negative) Urine Blood Trace /uL (Negative) H Urine Nitrite Negative (Negative) Urine Bilirubin Negative (Negative) Urine Urobilinogen Normal mg/dL (Negative) Urine Leukocyte Esterase Negative /uL (Negative) Urine RBC 5 /hpf (0 - 3) Urine Microscopic WBC < 1 /HPF (0-3) Urine Squamous Epithelial Cells None seen /hpf (<5) Urine Bacteria None seen /hpf (None Seen) Urine Mucus Few (None Seen) Urine Glucose Normal mg/dL (Normal) Assessment/Plan Assessment/Plan Impression: -CVA ruled out -obesity -primary hypertension -BPH -cervical spinal stenosis -dyslipidemia Plan: -CT scan of the neck -continue Hytrin and finasteride -antihypertensives -MRI c spine prn ativan for MRI decadron Plan discussed with: Patient My Orders Orders - JAYNE ZARATE MD Procedure Category Date Status Time Mri Neck W Out MRI 12/15/24 Logged Contrast 13:05 Dexamethasone PHA 12/16/24 In Process Injection (Decadron 10:00 Date of Service: December 15, 2024 Billing Provider: JAYNE ZARATE MD Common Visit Codes: [id number] INP/OBS CARE(HIGH) JAYNE ZARATE MD December 15, 2024 13:59
[2024-12-15] MEDS: DexAMETHasone SOD PHOS 10MG/1ML VIAL INJ IV ONE (14:29)
--- NOTE | 2024-12-15 18:27 | DVH ---
CLINICAL INFORMATION: 64 years old, Male; cervical myelopathy. TECHNIQUE: Multisequence multiplanar MRI images of the cervical spine were obtained without contrast . COMPARISON: CT CERVICAL WITHOUT CONTRAST on DOS: 12/14/24 FINDINGS: Bones: Straightening of the normal cervical lordosis. No significant spondylolisthesis. Vertebral bod y heights are maintained. Posterior elements are intact. No acute fracture. No focal suspicious marro w signal abnormality. Spinal cord: There is indentation of the spinal cord of the C3-C4 level due to the disc extrusion at this level. Mild t2/stir hyperintense signal of the spinal cord in this location, likely due to myel opathy. Paraspinal soft tissues: Paraspinal and prevertebral soft tissues are unremarkable. Other: No other significant findings. Cervical disc levels: C2-C3: Disc desiccation. Diffuse disc bulge mildly indenting the ventral aspect of the thecal sac an d congenital spinal canal narrowing, contributing to moderate spinal canal stenosis, closely approxim ating the ventral aspect of the spinal cord and partially effacing the lateral recesses. No significa nt neural foraminal stenosis. C3-C4: Disc desiccation with moderate disc space narrowing and central disc extrusion measuring up to 6.5 mm in AP dimension, 5.5 mm in transverse dimension, and 9.5 mm in craniocaudal dimension, abutti ng and indenting the ventral aspect of the spinal cord, with mild t2/stir hyperintense signal in the spinal cord consistent with myelopathy. Partial effacement of the lateral recesses. Facet and uncinat e hypertrophy with moderate to severe right and moderate left neural foraminal stenoses. C4-C5: Disc desiccation with moderate disc space narrowing diffuse disc bulge superimposed on congeni rochelle spinal canal narrowing, causing moderate spinal canal stenosis and effacement of the lateral rece sses. Facet and uncinate hypertrophy with severe right and moderate to severe left neural foraminal s tenoses. C5-C6: Disc desiccation with moderate disc space narrowing and diffuse disc bulge causing moderate sp inal canal stenosis, abutting the ventral aspect of the spinal cord and effacing the lateral recesses . Facet and uncinate hypertrophy with severe left and moderate to severe right neural foraminal steno ses. C6-C7: Disc desiccation with moderate disc space narrowing and diffuse disc bulge superimposed on con genital spinal canal narrowing, causing moderate spinal canal stenosis and partial effacement of the lateral recesses. Facet and uncinate hypertrophy with moderate to severe bilateral neural foraminal s tenoses. C7-T1: Disc desiccation with no significant spinal canal or neural foraminal stenosis. IMPRESSION: 1. Central disc extrusion at C3-C4 causing severe spinal canal stenosis, abutting and indenting the v entral aspect of the spinal cord. T2/stir hyperintense signal in the spinal cord at the C3-C4 level, likely due to myelopathy. 2. Additional degenerative disc disease and facet/ uncinate disease in the cervical spine with associ ated spinal canal, subarticular, and neural foraminal stenoses as detailed above. 3. There is a degree of congenital spinal canal narrowing contributing to the spinal canal stenoses. 4. Additional findings as detailed above.
--- NOTE | 2024-12-15 23:04 | DVHINCON2 ---
Date of service: December 15, [address] Fink Reason for Consultation Upper extremity numbness History of Present Illness Mr. Hancock is a 64 years old right-handed gentleman with a history of hypertension, BPH, he came to the hospital on 12/13/2024 with a chief company of numbness in both arms. At this time, he is alert and fully oriented, he provided the following history About 1-2 months ago, he developed intermittent tingling and numbness in bilateral three video fingers, for about one month, the symptoms in the left upper extremity has been constant, and the paresthesia spread to whole left upper extremity below the shoulder. For about one week, the intermittent tingling/numbness in the right hand has spread to the elbow. He was symptoms worse when he is driving or holding something in the hand, he was feel weaker in the hand For 2-3 years, the patient was has intermittent intense neck pain, 8-10/10, sometimes has pain shooting into both shoulders when he was coughing He was no difficulty with bowel/bladder control Urinalysis, 12/13/2024: Unremarkable UDS, 12/13/2024: Negative CBC, 12/14/2024: Unremarkable CMP, 12/14/2024: Unremarkable TG/HDL/LDL/HDL, 12/13/2024: 81/138/100/34 TSH, 12/13/2024: 1.1 CT head, 12/13/2024: No acute intracranial abnormality. Moderate mucosal opacification of the left maxillary sinus MRI C-spine, 12/15/2024: 1. Central disc extrusion at C3-C4 causing severe spinal canal stenosis, abutting and indenting the ventral aspect of the spinal cord. T2/stir hyperintense signal in the spinal cord at the C3-C4 level, likely due to myelopathy. 2. Additional degenerative disc disease and facet/ uncinate disease in the cervical spine with associated spinal canal, subarticular, and neural foraminal stenoses as detailed above. 3. There is a degree of congenital spinal canal narrowing contributing to the spinal canal stenoses. 4. Additional findings as detailed above Past Medical History Hypertension, BPH Past Surgical History Hernia repair, bilateral knee surgery Family History: Alcoholism G8 BROTHER Diabetes mellitus G8 MOTHER FH: ALS (amyotrophic lateral sclerosis) G8 FATHER Hypertension G8 MOTHER G8 SISTER Family History Hypertension, Diabetes Social History He was a tobacco smoker, but denies a history of alcohol or recreational substance abuse Allergies: Coded Allergies: Tamsulosin (Verified Allergy, Mild, 12/13/24) Home Meds Reported Medications Terazosin HCl (Terazosin Hydrochloride) 1 Mg Cap, 1 CAP PO HS 12/13/24 Zolpidem Tartrate (Zolpidem Tartrate) 10 Mg Tab, 1 TAB PO QHSP PRN 12/13/24 Bupropion Hcl (Bupropion Hcl Er) 100 Mg Tab, 1 TAB PO DAILY 12/13/24 Amlodipine Besylate (Amlodipine Besylate) 5 Mg Tab, 1 TAB PO DAILY 12/13/24 Finasteride (Finasteride) 5 Mg Tab, 1 TAB PO HS 12/13/24 Metoprolol Succinate (Metoprolol Succinate Er) 50 Mg Tab, 1 TAB PO DAILY 12/13/24 Current Medications Current Medications Medications (Trade) Dose Ordered Sig/Tito Route PRN Reason Start Time Stop Time Status Last Admin Dexamethasone Sodium Phosphate (Decadron Injection) 6 mg DAILY IV 12/16/24 10:00 Review of Systems As above, the other systems are negative Vital Signs Vital Signs Date Time Temp Pulse Resp B/P (MAP) Pulse Ox O2 Delivery O2 Flow Rate FiO2 12/15/24 21:23 124/74 12/15/24 21:00 97.8 72 19 96 97.8 12/15/24 08:00 Room Air* 0 21 Physical Exam GENERAL EXAM: General: the patient is well developed and nourished. No acute distress. HEENT: Normocephalic, neck is supple, no carotid bruits. No mass. RESPIRATORY: Normal respiratory effort with symmetrical lung expansion. Lungs clear to auscultation. CARDIOVASCULAR: Regular rate and rhythm with no murmurs. S1, S2. ABDOMEN: Soft, nontender, normal bowel sound MUSCULOSKELETAL EXAM: No tenderness in the cervical spine. No Tinel's sign in the wrist NEUROLOGICAL: MENTAL STATUS: Awake and alert. Oriented to person, place, time and general circumstances. Able to give personal history. SPEECH, LANGUAGE, HIGHER CORTICAL FUNCTION: no aphasia or dysathria. CRANIAL NERVES: #2: Intact visual zamorano to confrontation. The optic discs were sharp. #3,4,6: Pupils are equal, round and reactive. EOMs full and conjugate. No nystagmus. #5: Facial sensation intact in all three divisions bilaterally. Mandibular strength intact. #7: Facial muscles symmetrical and strength intact. #8: Hearing grossly normal to voice. #9,10: Uvula and soft palate rise in the midline. Swallow and voice are normal. #11: Trapezius and sternomastoid strength intact bilaterally. #12: Tongue midline. No fasciculations or atrophy. SENSATION: Sensation to touch and pinprick is diminished in bilateral three radial fingers MOTOR: Normal tone in the upper and lower extremity. Normal muscle bulk. No fasciculations. No abnormal movements or posturing. Muscle strength of the major groups in the upper extremities is 5/5. Muscle strength of the major groups in the lower extremities is 5/5. REFLEXES: Deep tendon reflexes normal and symmetrical. No pathological reflexes. CEREBELLAR/COORDINATION: Finger to nose is normal bilaterally. GAIT/STATION: deferred. Labs/Diagnostic Data Labs Test 12/14/24 06:52 12/13/24 13:35 12/13/24 10:07 12/13/24 09:15 Range/Units White Blood Count 7.0 4.4-10.8 10^3/uL Red Blood Count 5.29 4.5-5.90 10^6/uL Hemoglobin 15.4 13.5-17.5 g/dL Hematocrit 44.4 41.0-53.0 % Mean Corpuscular Volume 83.8 80.0-100.0 fL Mean Corpuscular Hemoglobin 29.1 28.0-32.0 pg Mean Corpuscular Hemoglobin Concent 34.7 32.0-36.0 g/dL Red Cell Distribution Width 13.7 11.8-14.3 % Platelet Count 152 140-450 10^3/uL Mean Platelet Volume 8.9 6.9-10.8 fL Neutrophils (%) (Auto) 74.6 37.0-80.0 % Lymphocytes (%) (Auto) 15.3 10.0-50.0 % Monocytes (%) (Auto) 7.7 0.0-12.0 % Eosinophils (%) (Auto) 1.8 0.0-7.0 % Basophils (%) (Auto) 0.6 0.0-2.0 % Neutrophils # (Auto) 5.3 1.6-8.6 10 ^3/uL Lymphocytes # (Auto) 1.1 0.4-5.4 10 ^3/uL Monocytes # (Auto) 0.5 0-1.3 10 ^3/uL Eosinophils # (Auto) 0.1 0-0.8 10 ^3/uL Basophils # (Auto) 0 0-0.2 10 ^3/uL Nucleated Red Blood Cells 0.2 % Sodium Level 139 136-145 mmol/L Potassium Level 4.0 3.5-5.1 mmol/L Chloride Level 106 98-107 mmol/L Carbon Dioxide Level 23 20-31 mmol/L Anion Gap 10 5-15 Blood Urea Nitrogen 14 9-23 mg/dL Creatinine 0.87 0.700-1.30 mg/dL Glomerular Filtration Rate Calc 98 >90 mL/min BUN/Creatinine Ratio 16.1 10.0-20.0 Serum Glucose 133 H 74-106 mg/dL Calcium Level 9.9 8.7-10.4 mg/dL Total Bilirubin 1.0 0.2-1.0 mg/dL Aspartate Amino Transferase (AST) 19 13-40 U/L Alanine Aminotransferase (ALT) 43 H 7-40 U/L Alkaline Phosphatase 81 46-116 U/L Total Protein 7.4 5.7-8.2 g/dL Albumin 4.6 3.2-4.8 g/dL Influenza Type A Antigen Negative Negative Influenza Type B Antigen Negative Negative SARS-CoV-2 Antigen (Rapid) Negative NEGATIVE Urine Color Light-yellow Yellow Urine Clarity Clear Clear Urine pH 6.5 5.0-9.0 Urine Specific [place] 1.018 1.001-1.035 Urine Protein Negative Negative Urine Ketones Negative Negative Urine Blood Trace H Negative /uL Urine Nitrite Negative Negative Urine Bilirubin Negative Negative Urine Urobilinogen Normal Negative mg/dL Urine Leukocyte Esterase Negative Negative /uL Urine RBC 5 0 - 3 /hpf Urine Microscopic WBC < 1 0-3 /HPF Urine Squamous Epithelial Cells None seen <5 /hpf Urine Bacteria None seen None Seen /hpf Urine Mucus Few None Seen Urine Glucose Normal Normal mg/dL Urine Opiates Screen Neg NEGATIVE Urine Fentanyl Screen Neg NEGATIVE Urine Barbiturates Screen Neg NEGATIVE Urine Phencyclidine Screen Neg NEGATIVE Urine Amphetamines Screen Neg NEGATIVE Urine Benzodiazepines Screen Neg NEGATIVE Urine Cocaine Screen Neg NEGATIVE Urine Cannabinoids Screen Neg NEGATIVE Magnesium Level 2.0 1.6-2.6 mg/dL Troponin I High Sensitivity < 3 L </=54 ng/L Triglycerides Level 81 < 150 mg/dL Cholesterol Level 138 < 200 mg/dL LDL Cholesterol 100 H < 100 mg/dL HDL Cholesterol 34 L 40-59 mg/dL Thyroid Stimulating Hormone (TSH) 1.10 0.55-4.78 uIU/mL Assessment Bilateral carpal tunnel syndrome Cervical spinal stenosis Bilateral C4 radiculopathy with myelopathy evident in the MRI Plan/Recommendation Monitoring Supportive treatment Med surge Spine surgeon consultation Nocturnal carpal tunnel to the hands (address as outpatient) More recommendation per clinical course Prognosis: Poor This medical document was created using an electronic medical record system with [employer] dictation system. Although this document has been carefully reviewed, there may still be some phonetic and typographical errors. These areas are purely typographical due to imperfections of the software programs, and do not reflect any compromise in the patient's medical care. Plan discussed with: Patient, Other DANNI SALTER MD December 15, 2024 23:04
[2024-12-16 01:00] VITALS: BP 122/73; PULSE 78; RESP 19; TEMP 97.4; O2SAT 95
--- NOTE | 2024-12-16 02:00 | DVHSR ---
APPROVED REPORT EXAM: Two-dimensional and M-mode echocardiogram with Doppler and color Doppler. Blood Pressure: 130/78 mmHg INDICATION Dyspnea RISK FACTORS Height: 5'6", Weight: 220 DIMENSIONS LVDd5.3 (3.8-5.7cm)LA (2D)4.2 (1.9-4.0cm)Aortic Root3.5 (2.0-3.7cm) LVDs3.3 (2.5-4.0cm)LA (MM) (1.9-4.0cm)Aortic Cusp Exc2.0 (1.5-2.0cm) EF (%) 69.0 (55-70%)Rt. Atrium (1.9-4.0cm)Asc. Aorta3.0 cm IVSd0.9 (0.7-1.1cm)RV (D) (1.8-2.4cm) PWd1.0 (0.7-1.1cm) Mitral Valve MitralMitral Stenosis E wave0.58m/sMV Mean GR.mmHg A wave0.80m/sMV Peak GR.mmHg E/A ratio0.72D MVAcm2 DECEL [id number] 1/2 Timems Aortic Valve Aortic ValveAortic Stenosis V11.00m/Nayeli Mean GR.4mmHg V21.46m/Nayeli Peak GR.9mmHg LVOT Diameter2.4 (1.8-2.4cm)Doppler AVA3.10cm2 Pulmonic Valve V21.12m/s Conclusion NORMAL LV EF AND IS 65% NORMAL VALVES NORMAL RV FUNCTION NO EFFUSION
[2024-12-16 05:00] VITALS: BP 131/75; PULSE 83; RESP 20; TEMP 97.8; O2SAT 97
[2024-12-16 09:00] VITALS: BP 161/68; PULSE 93; RESP 18; TEMP 97.7; O2SAT 98
[2024-12-16] MEDS: DexAMETHasone SOD PHOS 10MG/1ML VIAL INJ IV SCH (09:14)
[2024-12-16 12:42] VITALS: BP 137/74; PULSE 67; RESP 20; TEMP 97.6; O2SAT 98
[2024-12-16 17:00] VITALS: BP 126/76; PULSE 76; RESP 18; TEMP 97.8; O2SAT 98
--- NOTE | 2024-12-16 18:22 | DVHPN2 ---
Subjective pending ortho spine consult, c/w decadneri mildy improving Reviewed: Care Plan, H&P, Labs, Medications Changes from previous H/P or p: No Changes General: Per HPI Respiratory: Cough Musculoskeletal: shoulder pain, hand pain Objective Vitals Vital Signs Date Time Temp Pulse Resp B/P (MAP) Pulse Ox O2 Delivery O2 Flow Rate FiO2 12/16/24 17:00 97.8 76 18 126/76 (93) 98 97.8 12/16/24 08:00 Room Air* 0 21 Intake/Output Intake and Output 12/16/24 07:00 Intake Total 2100 ml Output Total 800 ml Balance 1300 ml Intake Oral 2100 ml Output Urine Total 800 ml # Voids 2 # Bowel Movements 1 General Appearance: Alert, Oriented X3, Cooperative, mild distress HEENT: Atraumatic, PERRLA Lungs: Clear to auscultation, Normal air movement Cardiovascular: Normal S1, Normal S2 Abdomen: Normal bowel sounds, Soft, No tenderness Musculoskeletal: Normal sensory function, Normal motor function Skin: Dry, Intact Psych/Mental Status: Mental status NL, Mood NL Medications Current Medications Medications Dose Ordered Sig/Tito Route Start Time Stop Time Status Last Admin Dose Admin Acetaminophen/ Hydrocodone Bitart 1 tab Q4HP PRN PO 12/13/24 11:15 12/16/24 17:27 1 TAB Ondansetron HCl 4 mg Q4HP PRN IV 12/13/24 11:15 Acetaminophen 650 mg Q6HP PRN PO 12/13/24 11:15 12/13/24 18:11 650 MG Amlodipine Besylate 5 mg DAILY PO 12/14/24 10:00 12/16/24 09:15 5 MG Metoprolol Succinate 50 mg DAILY PO 12/14/24 10:00 12/16/24 09:15 50 MG Patient Own Medication 1 DAILY PO 12/14/24 10:00 Finasteride 5 mg HS PO 12/13/24 22:00 12/15/24 21:19 5 MG Terazosin HCl 1 mg HS PO 12/13/24 22:00 12/15/24 21:23 1 MG Zolpidem Tartrate 10 mg HSPRN PRN PO 12/14/24 11:30 12/15/24 22:43 10 MG Dexamethasone Sodium Phosphate 6 mg DAILY IV 12/16/24 10:00 12/16/24 09:14 6 MG Laboratory Results Laboratory Tests 12/14/24 06:52 Urinalysis Test 12/13/24 10:07 Urine Color Light-yellow (Yellow) Urine Clarity Clear (Clear) Urine pH 6.5 (5.0-9.0) Urine Specific [place] 1.018 (1.001-1.035) Urine Protein Negative (Negative) Urine Ketones Negative (Negative) Urine Blood Trace /uL (Negative) H Urine Nitrite Negative (Negative) Urine Bilirubin Negative (Negative) Urine Urobilinogen Normal mg/dL (Negative) Urine Leukocyte Esterase Negative /uL (Negative) Urine RBC 5 /hpf (0 - 3) Urine Microscopic WBC < 1 /HPF (0-3) Urine Squamous Epithelial Cells None seen /hpf (<5) Urine Bacteria None seen /hpf (None Seen) Urine Mucus Few (None Seen) Urine Glucose Normal mg/dL (Normal) Assessment/Plan Assessment/Plan Impression: -CVA ruled out -obesity -primary hypertension -BPH -cervical spinal stenosis -dyslipidemia Plan: -CT scan of the neck -continue Hytrin and finasteride -antihypertensives [facility] Plan discussed with: Patient Date of Service: December 16, 2024 Billing Provider: JAYNE ZARATE MD Common Visit Codes: [id number] INP/OBS CARE(HIGH) JAYNE ZARATE MD December 16, 2024 18:22
[2024-12-16 21:00] VITALS: BP 144/81; PULSE 68; RESP 19; TEMP 97.7; O2SAT 99
[2024-12-17] VITALS (8 sets, daily range): BP systolic 106–151; BP diastolic 68–84; PULSE 56–63; RESP 18–19; TEMP 97.6–98.6; O2SAT 95–100
[2024-12-17 08:10] LABS: Basophils # (auto) 0 10 ^3/uL (0-0.2); Basophils % (auto) 0.4 % (0.0-2.0); Eosinophils # (auto) 0 10 ^3/uL (0-0.8); Eosinophils % (auto) 0.1 % (0.0-7.0); Hematocrit 44.3 % (41.0-53.0); Hemoglobin 15.3 g/dL (13.5-17.5); Lymphocytes # (auto) 1.3 10 ^3/uL (0.4-5.4); Lymphocytes % (auto) 11.1 % (10.0-50.0); Mean Corpuscular Hemoglobin 28.8 pg (28.0-32.0); Mean Corpuscular Hgb Conc. 34.5 g/dL (32.0-36.0); Mean Corpuscular Volume 83.6 fL (80.0-100.0); Monocytes # (auto) 0.9 10 ^3/uL (0-1.3); Monocytes % (auto) 7.6 % (0.0-12.0); Neutrophils # (auto) 9.2 10 ^3/uL (1.6-8.6); Neutrophils % (auto) 80.8 % (37.0-80.0); Platelet Count (auto) 176 10^3/uL (140-450); Red Cell Distribution Width 13.8 % (11.8-14.3); White Blood Cell 11.4 10^3/uL (4.4-10.8)
[2024-12-17 08:26] LABS: Calcium 10.3 mg/dL (8.7-10.4); Chloride 106 mmol/L (98-107); Sodium 140 mmol/L (136-145)
[2024-12-17 08:27] LABS: Anion Gap 10 (5-15); Carbon Dioxide 24 mmol/L (20-31)
[2024-12-17 08:32] LABS: BUN/Creatinine Ratio 17.2 (10.0-20.0); Blood Urea Nitrogen 15 mg/dL (9-23)
[2024-12-17 08:34] LABS: Glucose 109 mg/dL (74-106)
--- NOTE | 2024-12-17 11:07 | DVHPN2 ---
Subjective Patient was denies any new symptoms. Reviewed: Care Plan, H&P, Labs, Medications Changes from previous H/P or p: No Changes General: Per HPI Respiratory: Cough Musculoskeletal: shoulder pain, hand pain Objective Vitals Vital Signs Date Time Temp Pulse Resp B/P (MAP) Pulse Ox O2 Delivery O2 Flow Rate FiO2 12/17/24 09:00 97.6 56 18 106/79 (88) 96 97.6 12/16/24 20:00 Room Air* 0 21 Intake/Output Intake and Output 12/17/24 07:00 Intake Total 2600 ml Balance 2600 ml Intake Oral 2600 ml # Voids 8 # Bowel Movements 1 General Appearance: Alert, Oriented X3, Cooperative, mild distress HEENT: Atraumatic, PERRLA Lungs: Clear to auscultation, Normal air movement Cardiovascular: Normal S1, Normal S2 Abdomen: Normal bowel sounds, Soft, No tenderness Musculoskeletal: Normal sensory function, Normal motor function Skin: Dry, Intact Psych/Mental Status: Mental status NL, Mood NL Medications Current Medications Medications Dose Ordered Sig/Tito Route Start Time Stop Time Status Last Admin Dose Admin Acetaminophen/ Hydrocodone Bitart 1 tab Q4HP PRN PO 12/13/24 11:15 12/16/24 21:35 1 TAB Ondansetron HCl 4 mg Q4HP PRN IV 12/13/24 11:15 Acetaminophen 650 mg Q6HP PRN PO 12/13/24 11:15 12/13/24 18:11 650 MG Amlodipine Besylate 5 mg DAILY PO 12/14/24 10:00 12/16/24 09:15 5 MG Metoprolol Succinate 50 mg DAILY PO 12/14/24 10:00 12/16/24 09:15 50 MG Patient Own Medication 1 DAILY PO 12/14/24 10:00 Finasteride 5 mg HS PO 12/13/24 22:00 12/16/24 21:35 5 MG Terazosin HCl 1 mg HS PO 12/13/24 22:00 12/16/24 21:35 1 MG Zolpidem Tartrate 10 mg HSPRN PRN PO 12/14/24 11:30 12/16/24 23:02 10 MG Dexamethasone Sodium Phosphate 6 mg DAILY IV 12/16/24 10:00 12/16/24 09:14 6 MG Laboratory Results Laboratory Tests 12/17/24 07:50 Chemistry Test 12/17/24 07:50 Calcium Level 10.3 mg/dL (8.7-10.4) Urinalysis Test 12/13/24 10:07 Urine Color Light-yellow (Yellow) Urine Clarity Clear (Clear) Urine pH 6.5 (5.0-9.0) Urine Specific [place] 1.018 (1.001-1.035) Urine Protein Negative (Negative) Urine Ketones Negative (Negative) Urine Blood Trace /uL (Negative) H Urine Nitrite Negative (Negative) Urine Bilirubin Negative (Negative) Urine Urobilinogen Normal mg/dL (Negative) Urine Leukocyte Esterase Negative /uL (Negative) Urine RBC 5 /hpf (0 - 3) Urine Microscopic WBC < 1 /HPF (0-3) Urine Squamous Epithelial Cells None seen /hpf (<5) Urine Bacteria None seen /hpf (None Seen) Urine Mucus Few (None Seen) Urine Glucose Normal mg/dL (Normal) Labs and/or images reviewed: Labs reviewed by me, Image(s) reviewed by me Assessment/Plan Assessment/Plan Impression: -CVA ruled out -obesity -primary hypertension -BPH -probable cervical spinal stenosis -dyslipidemia Plan: MRI of the cervical spine reviewed with the patient. Awaiting spinal surgery consultation. Further course of treatment per their recommendations. -continue BPH meds, antihypertensives Total time spent with patient discussing and formulating plan of care: 35 minutes. This medical document was created using an electronic medical record system with [employer] dictation system. Although this document has been carefully reviewed, there may still be some phonetic and typographical errors. These areas are purely typographical due to imperfections of the software programs, and do not reflect any compromise in the patient's medical care. Plan discussed with: Patient, Other (RN) Date of Service: December 17, 2024 Billing Provider: LIZ SCHMID NP Common Visit Codes: [id number] INP/OBS CARE(MOD) LIZ SCHMID NP December 17, 2024 11:07
--- NOTE | 2024-12-17 23:46 | DVHPN2 ---
Progress Note - Dictate Date Seen: December 17, 2024 Medical Necessity Reason Pt with a Central, PICC or Fol: No Subjective Mr. Hancock is a 64 years old right-handed gentleman with a history of hypertension, BPH, he came to the hospital on 12/13/2024 with a chief company of numbness in both arms. I have seen and examined the patient, I have discussed with his nurse, he was upset because spine team has not seen him yet, and he was a plan to go to the [facility] for a graduation I have advised him to try to stay as low as possible and they do not leave the hospital before spine team evaluation Urinalysis, 12/13/2024: Unremarkable UDS, 12/13/2024: Negative CBC, 12/14/2024: Unremarkable CMP, 12/14/2024: Unremarkable TG/HDL/LDL/HDL, 12/13/2024: 81/138/100/34 TSH, 12/13/2024: 1.1 CT head, 12/13/2024: No acute intracranial abnormality. Moderate mucosal opacification of the left maxillary sinus MRI C-spine, 12/15/2024: 1. Central disc extrusion at C3-C4 causing severe spinal canal stenosis, abutting and indenting the ventral aspect of the spinal cord. T2/stir hyperintense signal in the spinal cord at the C3-C4 level, likely due to myelopathy. 2. Additional degenerative disc disease and facet/ uncinate disease in the cervical spine with associated spinal canal, subarticular, and neural foraminal stenoses as detailed above. 3. There is a degree of congenital spinal canal narrowing contributing to the spinal canal stenoses. 4. Additional findings as detailed above vital signs Vital Sign Date Time Temp Pulse Resp B/P (MAP) Pulse Ox O2 Delivery O2 Flow Rate FiO2 12/17/24 21:20 133/78 12/17/24 21:00 98.6 60 18 98 98.6 12/17/24 08:00 Room Air* 0 21 Total Intake and Output 12/16/24 12/16/24 12/17/24 15:00 23:00 07:00 Intake Total 600 ml 1200 ml 800 ml Balance 600 ml 1200 ml 800 ml medications Current Medications Medications Dose Ordered Sig/Tito Route Start Time Stop Time Status Last Admin Dose Admin Acetaminophen/ Hydrocodone Bitart 1 tab Q4HP PRN PO 12/13/24 11:15 12/17/24 20:18 1 TAB Ondansetron HCl 4 mg Q4HP PRN IV 12/13/24 11:15 Acetaminophen 650 mg Q6HP PRN PO 12/13/24 11:15 12/13/24 18:11 650 MG Amlodipine Besylate 5 mg DAILY PO 12/14/24 10:00 12/17/24 11:07 5 MG Metoprolol Succinate 50 mg DAILY PO 12/14/24 10:00 12/17/24 11:08 50 MG Patient Own Medication 1 DAILY PO 12/14/24 10:00 Finasteride 5 mg HS PO 12/13/24 22:00 12/17/24 21:20 5 MG Terazosin HCl 1 mg HS PO 12/13/24 22:00 12/17/24 21:20 1 MG Zolpidem Tartrate 10 mg HSPRN PRN PO 12/14/24 11:30 12/17/24 22:59 10 MG Dexamethasone Sodium Phosphate 6 mg DAILY IV 12/16/24 10:00 12/17/24 11:07 6 MG objective General: the patient is well developed and nourished. No acute distress. MENTAL STATUS: Awake and alert. Oriented to person, place, time and general circumstances. Able to give personal history. SPEECH, LANGUAGE, HIGHER CORTICAL FUNCTION: no aphasia or dysathria. CRANIAL NERVES: Pupils are equal, round and reactive. EOMs full and conjugate. No nystagmus. Facial sensation intact in all three divisions bilaterally. Mandibular strength intact. Facial muscles symmetrical and strength intact. SENSATION: Sensation to touch and pinprick is diminished in bilateral three radial fingers MOTOR: Normal tone in the upper and lower extremity. Normal muscle bulk. No fasciculations. No abnormal movements or posturing. Muscle strength of the major groups in the extremities is 5/5. REFLEXES: Deep tendon reflexes normal and symmetrical. No pathological reflexes. CEREBELLAR/COORDINATION: Finger to nose is normal bilaterally. GAIT/STATION: deferred. laboratory and microbiology Laboratory Tests 12/17/24 07:50 Test 12/17/24 07:50 Range/Units Serum Glucose 109 H 74-106 mg/dL Problem List Bilateral carpal tunnel syndrome Cervical spinal stenosis Bilateral C4 radiculopathy with myelopathy evident in the MRI Assessment/Plan Monitoring Supportive treatment Med surge Spine surgeon consultation Nocturnal carpal tunnel to the hands (address as outpatient) This medical document was created using an electronic medical record system with [employer] computerized dictation system. Although this document has been carefully reviewed, there may still be some phonetic and typographical errors. These areas are purely typographical due to imperfections of the software programs, and do not reflect any compromise in the patient's medical care. Prognosis poor Plan discussed with: Patient, Other Total Time (mins): 35 DANNI SALTER MD December 17, 2024 23:46
[2024-12-18] VITALS (7 sets, daily range): BP systolic 127–148; BP diastolic 75–84; PULSE 52–61; RESP 16–18; TEMP 36.5; O2SAT 96–100
[2024-12-18] MEDS ORDERED: DEX4T PO (12:03)
[2024-12-18] MEDS ORDERED: HYDR-4902 PO (12:03)
--- NOTE | 2024-12-18 12:10 | DVHDS2 ---
Discharge Summary Date of Admission December 13, 2024 at 11:15 Date of Discharge: December 18, 2024 Admitting Diagnosis Rule out CVA Labs/Diagnostic Data: Laboratory Results Test 12/17/24 07:50 12/14/24 06:52 12/13/24 13:35 12/13/24 10:07 White Blood Count 11.4 10^3/uL (4.4-10.8) Red Blood Count 5.30 10^6/uL (4.5-5.90) Hemoglobin 15.3 g/dL (13.5-17.5) Hematocrit 44.3 % (41.0-53.0) Mean Corpuscular Volume 83.6 fL (80.0-100.0) Mean Corpuscular Hemoglobin 28.8 pg (28.0-32.0) Mean Corpuscular Hemoglobin Concent 34.5 g/dL (32.0-36.0) Red Cell Distribution Width 13.8 % (11.8-14.3) Platelet Count 176 10^3/uL (140-450) Mean Platelet Volume 8.3 fL (6.9-10.8) Neutrophils (%) (Auto) 80.8 % (37.0-80.0) Lymphocytes (%) (Auto) 11.1 % (10.0-50.0) Monocytes (%) (Auto) 7.6 % (0.0-12.0) Eosinophils (%) (Auto) 0.1 % (0.0-7.0) Basophils (%) (Auto) 0.4 % (0.0-2.0) Neutrophils # (Auto) 9.2 10 ^3/uL (1.6-8.6) Lymphocytes # (Auto) 1.3 10 ^3/uL (0.4-5.4) Monocytes # (Auto) 0.9 10 ^3/uL (0-1.3) Eosinophils # (Auto) 0 10 ^3/uL (0-0.8) Basophils # (Auto) 0 10 ^3/uL (0-0.2) Nucleated Red Blood Cells 0.0 % Sodium Level 140 mmol/L (136-145) Potassium Level 4.0 mmol/L (3.5-5.1) Chloride Level 106 mmol/L (98-107) Carbon Dioxide Level 24 mmol/L (20-31) Anion Gap 10 (5-15) Blood Urea Nitrogen 15 mg/dL (9-23) Creatinine 0.87 mg/dL (0.700-1.30) Glomerular Filtration Rate Calc 98 mL/min (>90) BUN/Creatinine Ratio 17.2 (10.0-20.0) Serum Glucose 109 mg/dL (74-106) Calcium Level 10.3 mg/dL (8.7-10.4) Total Bilirubin 1.0 mg/dL (0.2-1.0) Aspartate Amino Transferase (AST) 19 U/L (13-40) Alanine Aminotransferase (ALT) 43 U/L (7-40) Alkaline Phosphatase 81 U/L (46-116) Total Protein 7.4 g/dL (5.7-8.2) Albumin 4.6 g/dL (3.2-4.8) Influenza Type A Antigen Negative (Negative) Influenza Type B Antigen Negative (Negative) SARS-CoV-2 Antigen (Rapid) Negative (NEGATIVE) Urine Color Light-yellow (Yellow) Urine Clarity Clear (Clear) Urine pH 6.5 (5.0-9.0) Urine Specific [place] 1.018 (1.001-1.035) Urine Protein Negative (Negative) Urine Ketones Negative (Negative) Urine Blood Trace /uL (Negative) Urine Nitrite Negative (Negative) Urine Bilirubin Negative (Negative) Urine Urobilinogen Normal mg/dL (Negative) Urine Leukocyte Esterase Negative /uL (Negative) Urine RBC 5 /hpf (0 - 3) Urine Microscopic WBC < 1 /HPF (0-3) Urine Squamous Epithelial Cells None seen /hpf (<5) Urine Bacteria None seen /hpf (None Seen) Urine Mucus Few (None Seen) Urine Glucose Normal mg/dL (Normal) Urine Opiates Screen Neg (NEGATIVE) Urine Fentanyl Screen Neg (NEGATIVE) Urine Barbiturates Screen Neg (NEGATIVE) Urine Phencyclidine Screen Neg (NEGATIVE) Urine Amphetamines Screen Neg (NEGATIVE) Urine Benzodiazepines Screen Neg (NEGATIVE) Urine Cocaine Screen Neg (NEGATIVE) Urine Cannabinoids Screen Neg (NEGATIVE) Test 12/13/24 09:15 Magnesium Level 2.0 mg/dL (1.6-2.6) Troponin I High Sensitivity < 3 ng/L (</=54) Triglycerides Level 81 mg/dL (< 150) Cholesterol Level 138 mg/dL (< 200) LDL Cholesterol 100 mg/dL (< 100) HDL Cholesterol 34 mg/dL (40-59) Thyroid Stimulating Hormone (TSH) 1.10 uIU/mL (0.55-4.78) Other Laboratory Tests 12/17/24 07:50 Brief Hx & Hospital Course: History of Present Illness Maxi Hancock is a 64-year-old male with past medical history of hypertension, kidney stones, BPH and hernia repair who presents to the ED with bilateral upper arm numbness and tingling x1 month. He reports that he was given a contact for a neurologist, called him and stated that he would get back with him that was 2 weeks ago. Patient also states that he has been having a cough for 1 week with associated shoulder pain and productive yellow phlegm. He denies any recent sick contacts. Patient denies any recent trauma or injury, recent travels, recent ingestion of spoiled food, chest pain, shortness of breath, fever, chills, lightheadedness, weakness, dizziness, abdominal pain, nausea, or vomiting. Course of hospitalization: Workup for CVA including CT scan, carotid Doppler study, echocardiogram negative. Patient continued to have paresthesia to both arms, also reporting have severe pain shooting down his shoulders with coughing. Patient had CT scan of the cervical spine which revealed spinal stenosis, verified with C3/3 for stenosis on MRI. Consultation was placed with spinal surgery. Patient was started on IV Decadron with some improvement with the symptoms. Patient was requesting to be discharged home. Follow up appointment will be made with spinal surgery. He will be discharged on continued treatment with Decadron 4 mg p.o. daily x7 days as well as [place] 5/325 q.8 hours as needed for [id number] pain. Patient was also instructed to lift anything greater than 10 lb. Patient may return back to work as long as he is not taking his pain medication prior to work, at work, in addition to not working with any heavy machinery. Physical examination General: Alert and Oriented x3. No acute distress. Well-nourished. Obese Eyes: EOMI. Anicteric. HENT: Moist mucous membranes. Lungs: Clear to auscultation bilaterally. No accessory muscle use. Cardiovascular: Regular rate and rhythm. No murmur. No JVD. Abdomen: Soft, non-tender and non-distended. No palpable masses. Extremities: No edema. Non-tender. Skin: No rashes or lesions. Warm. Neurologic: No focal neurological deficits. CN II-XII grossly intact, but not individually tested. Psychiatric: Cooperative. Appropriate mood and affect. Total time spent with patient discussing and formulating plan of care: 35 minutes. This medical document was created using an electronic medical record system with [employer] system. Although this document has been carefully reviewed, there may still be some phonetic and typographical errors. These areas are purely typographical due to imperfections of the software programs, and do not reflect any compromise in the patient's medical care. Consults/Reason for consult Spinal surgery consultation Condition at Discharge: Fair Final Diagnosis/Problems List Paresthesia secondary to severe C3/C4 spinal stenosis Secondary diagnosis: BPH Primary hypertension obesity Dyslipidemia Discharge Disposition: Home Discharge Instruct/Medications Diet: Cardiac 2g Na,low cholest Activity: Light activity Activity comment: Not lift anything greater than 10 lb Follow Up/Referral: Follow up with PCP in one week Follow up with spinal surgeon at established appointment Medications: Decadron 4 mg p.o. daily [place] 5/325 q.8 hours as needed for [id number] pain 36 Discharge Statement: "Patient was advised to return to the ER or call 911 if any headaches, dizziness, shortness of breath, chest pain, abdominal pain, bleeding, fevers, or worsening of medical condition. Patient was counseled about treatment plan, medications, possible side effects, patient�verbalized understanding. All questions were answered to the best of my ability. This discharge took greater then 30 minutes in planning, reviewing documentation, counseling the patient, and discussing with other team members." ASSESSMENT ASSESSMENT Assessment Paresthesia secondary to severe C3/C4 spinal stenosis Date of Service: December 18, 2024 Billing Provider: LIZ SCHMID NP Common Visit Codes: 82795-ZEP/OBS DISCH DAY >30min LIZ SCHMID NP December 18, 2024 12:10
== END 2024-12-18 18:23 | disposition home or self-care (01) | DRG 552 ==
LOC: ER 08:45 → OVERFLOW 11:15 → TELE-WESTW 11:42
PROVIDERS: ADMIT Nurse Practitioner Acute Care; ATTEND Nurse Practitioner Acute Care
DX: M48.02 Spinal stenosis, cervical region (principal); M50.01 Cervical disc disorder with myelopathy, high cervical region; G56.03 Carpal tunnel syndrome, bilateral upper limbs; E78.5 Hyperlipidemia, unspecified; E66.9 Obesity, unspecified; R00.1 Bradycardia, unspecified; N40.0 Benign prostatic hyperplasia without lower urinary tract symptoms; Z20.822 Contact with and (suspected) exposure to COVID-19; F17.200 Nicotine dependence, unspecified, uncomplicated; M50.11 Cervical disc disorder with radiculopathy, high cervical region; I10 Essential (primary) hypertension; Z87.442 Personal history of urinary calculi; Z68.35 Body mass index [BMI] 35.0-35.9, adult; Z83.3 Family history of diabetes mellitus; Z82.49 Family history of ischemic heart disease and other diseases of the circulatory system
CPT/HCPCS: 36415; 70450; 71045; 72125; 72141; 80048; 80053; 80061; 80307; 81001; 83735; 84443; 84484; 85025; 87426; 87804; 93306; 93886; G0378; J1100

== ENCOUNTER 2025-03-19 08:12 | Inpatient (IN) | payer BC ==
[2025-03-15 08:02] LABS: Hematocrit 44.0 % (41.0-53.0); Hemoglobin 15.3 g/dL (13.5-17.5); Mean Corpuscular Hemoglobin 29.0 pg (28.0-32.0); Mean Corpuscular Volume 83.5 fL (80.0-100.0); Nucleated Red Blood Cells % 0.0 %
[2025-03-15 08:12] LABS: Urine Protein, UAD Negative (Negative)
[2025-03-15 08:21] LABS: INR 1.05 (0.9-1.15); Partial Thromboplastin Time 30.0 SEC (24.5-34.5); Prothrombin Time 11.1 sec (9.3-11.8)
[2025-03-15 08:43] LABS: Albumin 4.5 g/dL (3.2-4.8); Alkaline Phosphatase 93 U/L (46-116); Anion Gap 10 (5-15); BUN/Creatinine Ratio 11.1 (10.0-20.0); Bilirubin, Total 0.6 mg/dL (0.2-1.0); Blood Urea Nitrogen 10 mg/dL (9-23); Calcium 9.1 mg/dL (8.7-10.4); Carbon Dioxide 24 mmol/L (20-31); Chloride 107 mmol/L (98-107); Potassium 4.1 mmol/L (3.5-5.1); Sodium 141 mmol/L (136-145); Total Protein 6.9 g/dL (5.7-8.2)
[2025-03-15 08:46] LABS: Alanine Aminotransferase 50 U/L (7-40); Glucose 121 mg/dL (74-106)
[~2025-03-19] VITALS: Ht 167.6 cm; Wt 94.9 kg
[~2025-03-19 08:12] MED LIST changes: +AMLO1TAB22 PO; +BUPR100T16 PO; +FIN5T PO; -IOHEXOL 350 MG/ML 100ML IJ ONE; +METO-289 PO; +TERA1CAP50 PO; +ZOLP10TA6 PO
[2025-03-19] MEDS: ceFAZolin 2 GM/D5W50ml 50 ML IV ONE (08:42)
[2025-03-19] MEDS: TRANEXAMIC ACID 20 ML ONE (10:12)
[2025-03-19] MEDS ORDERED: HYDROmorphone HCL 2 MG/ML VL/or syr ONE (10:47)
[2025-03-19] MEDS ORDERED: MIDAZOLAM HCL 2MG/2ML 2ml VIAL (1mg/ml) ONE (10:48)
[2025-03-19] MEDS ORDERED: fentaNYL CITRATE 100 MCG/2 ML VL ONE ×2 (10:48→12:32)
[2025-03-19] MEDS ORDERED: fentaNYL CITRATE 5 ML ONE (10:48)
--- NOTE | 2025-03-19 10:51 | DVHHP2 ---
History Allergies: Coded Allergies: Tamsulosin (Verified Allergy, Mild, 12/13/24) Chief Complaint: Neck pain, accompanied by numbness left greater than right, patient does not complain of any shoulder pain or headaches. He does have to shake his hands out frequently and he has been dropping items very frequently this has been going on for the past four months, he also says that his right leg will frequently give out on him however he has not fallen yet Present Illness(Onset/Duration Neck pain numbness to the arms left greater than right Noncontributory to case Exam Exam General Appearance: Normal HEENT: Normal ENT Inspection Neck: Normal Inspection, Other (Neck pain associated with numbness of both arms left greater than right weekends dropping items having to shake his hands out frequently due to the numbness) Respiratory: No Accessory Muscle Use, No Respiratory Distress, Other (Patient is speaking full sentences) Cardiovascular: Other (No complaints of chest pain skin is pink warm and dry) Extremities: Normal inspection, Non-tender, Other (Cervical radiculopathies numbness left greater than right) Neurologic: Alert, Motor Weakness (Bilateral hands), Normal Mood, R/L Numbness Plan Additional comments: Patient presents today for elective spine surgery with Dr Winston Sykes C3-6 and cervical discectomy and fusion Patient confirmed he has picked up his postoperative medications already He also has a postoperative appointment already set Patient verbalizes the risks and benefits have been reviewed with the patient during his preoperative visit by Dr. Sykes, he has no further questions and his consent has been signed Patient is open to accepting blood in the case of an emergency consents have been signed Call with questions Mitchel Riggs [facility] Orthopaedic Spine Surgery nurse practitioner For Dr Juan Manuel Sykes Patient was examined, chart reviewed, labs evaluated, and diagnostic studies and findings analyzed. Case was discussed with Dr. Winston Sykes who formulated the plan of care. This medical document was created using an electronic medical record system with [employer] dictation system. Although this document has been carefully reviewed, there might still be some phonetic and typographical errors. These areas are purely typographical due to imperfections of the software programs, and do not reflect any compromise in the patient's medical care. SIM RIGGS NP Mar 19, 2025 10:51
--- NOTE | 2025-03-19 11:12 | POSTOP ---
Post-Operative Note Post-Operative Note Preop Diagnosis Cervical Degenerative Disk Disease and Severe Spinal Stenosis Causing incapacitating neck pain, radiculopathy and progressive neurologic deficit Postop Diagnosis: Post Op Diagnosis: with massive C3/4 herniated disc causing cord signal changes and myelopathy and large herniated discs at C5/6 and C4/5 Procedure: Cervical 3 to 4 anterior cervical discectomy with Cervical 3-4 foraminotomies and facetectomies to decompression the spinal canal and Cervical 4 nerve roots Cervical 4 to 5 anterior cervical discectomy with Cervical 4-5 foraminotomies and facetectomies to decompression the spinal canal and Cervical 5 nerve roots Cervical 5 to 6 anterior cervical discectomy with Cervical 5-6 foraminotomies and facetectomies to decompression the spinal canal and Cervical 6 nerve roots Cervical 3-6 anterior cervical Fusion Cervical 3-6 anterior cervical instrumentation with freestanding cages Cervical 3-4 placement of allograft prosthetic device Cervical 4-5 placement of allograft prosthetic device Cervical 5-6 placement of allograft prosthetic device Operation performed Cervical 3-6 anterior cervical diskectomy and fusion Specimen None Anesthesia: General Anesthesiologist: Dr Cohn Blood Loss(fluid mgmt) See anesthesia record Tourniquet Time None Surgeon Dr Winston Sykes Box Toe Cementer Kimberly Barba, [employer]ENT [employer]IVING INSTRUCTOR Implant 7mm spacer x 3 3.5 x 14 mm screw x 6 Complications & Mgmt None Additional Remarks POD #0 Disposition: -Pending -Discharge RX: Patient has picked up all of his postoperative prescriptions already -Follow up appointment: with Dr Sykes on scheduled appointment [id number] [facility] [address] [place] [id number] -Pain: - IV pain meds post op day 1, with PO supplementation, goal is to progress weaning off IV medications and control pain with PO only. morphine 1mg q 4 hours (PAIN 7-10) - P.O. analgesics:Tylenol 650MG (PAIN 1-3) [place] 10/325 mg (PAIN 4-6) - Muscle relaxers scheduled administration. This is a beneficial medications for the incisional pain as it is mostly related to muscle spasms. Flexeril 10 mg TID - Cepacol throat lozenges as needed for sore throat -Antibiotics Operative recommendations: -Postoperative dose:-Post operative antibiotics cefazolin 1 g IV piggyback every 8 hours x 48 hours total of 6 doses -DVT PPX: -Hold all chemical DVT/ blood thinners for 14 days postoperatively -use mechanical DVT PPX such as SCD's, ambulation -Activity: -Pending PT evaluation and patients progression -Sit at side of bed for meals -Goal: Ambulate independently and safely (may use assistive devices if needed) -Medical Therapy goals: -Afebrile- Patient may develop a expected post operative fever by day 2-3, this may not be accompanied with a elevation in WBC. if fever develops: Acetaminophen for fever. Albuterol nebulizer Tx every 12 hours for 24 hours to facilitate adequate lung expansion and prevent development of atelectasis. -Euglycemic: bloods sugars under 130mmol/L for optimal healing -Normotensive: Avoid events of hypertension. This helps to keep post operative healing intact and avoids destabilization of beneficial hemostatic coagulation. Drains -Bulb drains: record output and characteristics of the drainage EVERY 6 HOURS- if there is no output indicate this by documenting 0ml output in note.. These will be to thumbprint compression unless otherwise ordered. Record output as well as amount in a note at least every 6 houtrs- more if indicated. Wound drainage is described by type, color, amount, and odor. Drainage can be 1 serous: Clear and thin, may be present in healing healthy wound. 2 serosanguineous containing blood may also be present and healthy healing wound 3. Sanguinous primarily blood 4. Purulent this is thick, white, and pus like. It may be indicated to give of a infection and should constitute a call to the provider immediately with the plan that the sample should be cultured. -Bravo: -DC in OR -Dressings -Anterior cervical patients: Initial surgical dressing may be reinforced if needed. If there is excessive bleeding, leaking, drainage in the bulb drain notify provider -Bowel management: -Colace 100mg bid -Diet: -Clear liquid diet and advance as patient tolerates within dietary limitations ( example: diabetic, Cardiac) -Incentive Spirometer: -10 x hour while awake, RN please educate and observe repeat demonstration, have IS at bedside POD #1 -X-rays: - none indicated at this time -Consults: -Physical Therapy evaluation, treatment recommendations, and discharge recommendations Call with questions Mitchel MORRISP- Orthopaedic Spine Surgery nurse practitioner For Dr Juan Manuel Sykes Patient was examined, chart reviewed, labs evaluated, and diagnostic studies and findings analyzed. Case was discussed with Dr. Winston Sykes who formulated the plan of care. This medical document was created using an electronic medical record system with [employer] dictation system. Although this document has been carefully reviewed, there might still be some phonetic and typographical errors. These areas are purely typographical due to imperfections of the software programs, and do not reflect any compromise in the patient's medical care. Date 03/19/25 Time 11:10 KIMBERLY BARBA NP Mar 19, 2025 11:12
[2025-03-19] MEDS ORDERED: MORPHINE SULFATE 4 MG/ML SYR/VIAL IV PRN (12:00)
[2025-03-19] MEDS ORDERED: HYDROmorphone HCL 2 MG/ML VL/or syr IV PRN (12:00)
[2025-03-19] MEDS ORDERED: MIDAZOLAM HCL 2MG/2ML 2ml VIAL (1mg/ml) IV PRN (12:00)
[2025-03-19] MEDS ORDERED: hydrALAZINE HCL 20 MG/ML VL IV PRN (12:00)
[2025-03-19] MEDS: ONDANSETRON HCL 4 MG/2 ML VIAL IV ONE (12:00)
[2025-03-19] MEDS: SUCCINYLCHOLINE CHLORIDE 20 MG/ML 10ML VIAL IV ONE (12:08)
[2025-03-19] MEDS ORDERED: ONDANSETRON HCL 4 MG/2 ML VIAL ONE (12:19)
[2025-03-19] MEDS ORDERED: PROPOFOL 10 MG/ML 20 ML IV ONE ×2 (12:19→13:56)
[2025-03-19] MEDS ORDERED: SUGAMMADEX 200mg/2ml Vial (100MG/ML) IV ONE (12:19)
--- NOTE | 2025-03-19 14:20 | DVHOP2 ---
Operative Report - 2 Report Details Date: 03/19/25 Preop Diagnosis: Severe cervical spinal stenosis at C3 to C6 with masive C3/4 herniated disc causing cord signal changes/ myelopathy and disc herniations at C4/5 and C5/6 Postop Diagnosis: same as pre op Surgeon: Winston Sykes MD Towboat Pilot: Kimberly riggs NP Anesthesiologist: Tre francis MD Anesthesia: General Consent: The patient was informed of the risks and benefits of the procedure. These include but are not limited to complications of anesthesia, postoperative infection, incomplete relief of symptoms, recurrence of symptoms, damage to blood vessels, nerves and tendons, deep venous thrombosis, pulmonary embolism and possible need for repeat surgery in the future. Name of Procedure Performed see detailed note Procedure Details Procedure Details: Pre Op Diagnosis: 1. Cervical Degenerative Disk Disease and Severe Spinal Stenosis Causing incapacitating neck pain, radiculopathy and progressive neurologic deficit Post Op Diagnosis: with massive C3/4 herniated disc causing cord signal changes and myelopathy and large herniated discs at C5/6 and C4/5 1. same as pre op Procedure: Cervical 3 to 4 anterior cervical discectomy with Cervical 3-4 foraminotomies and facetectomies to decompression the spinal canal and Cervical 4 nerve roots Cervical 4 to 5 anterior cervical discectomy with Cervical 4-5 foraminotomies an d facetectomies to decompression the spinal canal and Cervical 5 nerve roots Cervical 5 to 6 anterior cervical discectomy with Cervical 5-6 foraminotomies and facetectomies to decompression the spinal canal and Cervical 6 nerve roots Cervical 3-6 anterior cervical Fusion Cervical 3-6 anterior cervical instrumentation with freestanding cages Cervical 3-4 placement of allograft prosthetic device Cervical 4-5 placement of allograft prosthetic device Cervical 5-6 placement of allograft prosthetic device Surgeon: Winston Sykes MD Anesthesia: General Assist: Kimberly Riggs NP Fluids and EBL: see anesthesia note Procedure Note: The patient was seen in the Pre-anesthesia Care Unit and the site of the incision was initialed by me with a felt tipped marker. All questions by the patient were answered to the satisfaction of the patient and the chart was reviewed. The patient was taken to the operating room and placed supine on the [facility] Flat top table. General anesthesia was induced. Neuromonitoring leads were placed. A rolled towel was placed between the shoulder blades to hyperextend out the chest which will allow better exposure of the cervical spine. Halter traction to 10 pounds was placed. The arms were padded and adducted to the patients side making sure all pulses in the hands were present. Tape traction was undertaken on the shoulders to give us better radiographic exposure of the distal cervical spine. A gel-pad was placed under the occiput and 5 degrees of extension was placed on the neck without adverse effects to the patient. The anterior neck was prepped and draped. Pre-operative antibiotics were given 30 minutes prior to the start of the procedure. A c-arm fluoroscope was used to rosa maria out the incision site. At this time, a time out was taken per usual protocol. Due to the patient's large barrel chest fro COPD/sleep apnea and squat/short neck, it would be impossible to do a trnasverse incision effectively. Therefore a longitudinal incision was used. An incision was made through the skin with a 15 blade scalpel through the subcutaneous tissue down to the platysma. Self-retainers were placed. The platysma was incised along the longitudinal border with a Metzenbaum scissors. Blunt dissection was made through the deep cervical and pre-tracheal fascia taking care to protect the carotid sheath laterally and the Trachea/esophagus medially. The dissection was carried down to the prevertebral fascia. Any crossing vessels were ligated using a vascular clip or coagulated with a bovie. An esophageal retractor was next used to retract the trachea/esophagus and a bent [address] through the anterior annulus of the cervical disk and a lateral C-arm fluoroscopic image was taken to confirm that we were at the correct level. Next, bovie electrocautery was used to expose the bones of cervical 3,4,5,6 and bipolar electrocautery was used to lift up the Longus colli and capitus muscles. Black-Belt Self Retainers were used to retract the longus colli and capitus muscles bilaterally as well as the trachea/esophagus to the right and the carotid sheath to the left. Smooth thin Black-Belt retractors were placed proximally and distally and a needle was placed again in the anterior annulus of the disk and an image taken to confirm the correct level. At this point, the microscope was wheeled in and an 11 blade scalpel incised the anterior annulus of the cervical 3/4 and 4/5 and 5/6 disks. I started first with the C3/4 disc since this had the largest herniation of the 3 and was bad enough to cuase cord signal changes. Next, straight and curved curettes removed the remainder of the disks all the way down to the posterior longitudinal ligament. Carefully, a Kerison number one rongeur incised the posterior longitudinal ligament at the lateral end of the above disks and using a micro, blunt tip nerve hook to separate the posterior longitudinal ligament from the dura, alternating 1 mm and 2 mm Kerison rongeurs removed the posterior longitudinal ligament. The patient's tissue was very weak and it was easier than usual to do the discectomy and take down the Posterior longitudinal ligament at all 3 levels. We had to keep the BP higher than we normal use due to the patient various medical ailments so there was an ooze from bone bleeders throughout the case that had to be coagulated every few minutes. Next, Kerison 1mm and 2 mm rongeurs were alternated to get under the uncinate processes and undercut them to perform foraminotomies and facetectomies at the cervical 3/4 and 4/5 and 5/6 levels to decompress the central canal and cervical 4,5 and 6 nerve roots. Next the microscope was wheeled away and the c-arm fluoroscope was wheeled into the field and a lateral image was obtained. Increasing size graft trials were used starting at a 5 mm thick size until the proper tension in the disk space and height methodist obtained. We then placed final free standing cages at C3/4 and 4/5 and 5/6. At all 3 levels, a 7mm thick graft was used. Satisfactory placement was confirmed in the AP and lateral views using a C-arm fluoroscope. I was able to place size 14 screws at each level and good placement was seen on C arm. Copious irrigation of the wound with sterile saline and all bleeding was controlled before closure initiated. At this point, a 10 [place]ian round Sant[address] Drain was place deep to the Platysma muscle and the Platysma was approximated with one interrupted 0-Vicryl suture. The subcutaneous tissue was closed with interrupted 2-0 vicryl sutures and the skin was closed with winston. Sterile dressings were placed and a cervical collar placed, the patient extubated, transferred to the stretcher and taken to the Recovery Room in unremarkable condition. Other Notes: [id number] Condition Stable Disposition Still a Patient WINSTON SYKES MD Mar 19, 2025 14:20
[2025-03-19] MEDS ORDERED: ACETAMINOPHEN 325 MG TAB PO PRN (14:30)
[2025-03-19] MEDS ORDERED: MORPHINE SULFATE INJ 2 MG/ml SYRG IV PRN ×2 (14:30)
[2025-03-19] MEDS ORDERED: ONDANSETRON HCL 4 MG/2 ML VIAL IV PRN (14:30)
[2025-03-19] MEDS ORDERED: NITROGLYCERIN 0.4 MG SL TAB SL PRN (14:30)
--- NOTE | 2025-03-19 15:03 | DVH ---
C-ARM FLUOROSCOPY: PROCEDURE: C3 through C6 discectomy/fusion FLUOROSCOPY TIME: 21.9 sec DAP: 5.76 mgy FINDINGS: Spot intraoperative C arm radiographs demonstrating C3 through C6 discectomy/fusion. IMPRESSION: Please refer to surgical report for detailed findings.
--- NOTE | 2025-03-19 15:03 | DVH ---
C-ARM FLUOROSCOPY: PROCEDURE: C3 through C6 discectomy/fusion FLUOROSCOPY TIME: 21.9 sec DAP: 5.76 mgy FINDINGS: Spot intraoperative C arm radiographs demonstrating C3 through C6 discectomy/fusion. IMPRESSION: Please refer to surgical report for detailed findings.
[2025-03-19 18:56] VITALS: BP 149/90; PULSE 89; RESP 16; TEMP 98.2; O2SAT 94
[2025-03-19 18:57] VITALS: RESP 16; O2SAT 94
[2025-03-19 20:00] VITALS: PULSE 91
[2025-03-19] MEDS: FINASTERIDE 5 MG TAB PO SCH (20:06)
[2025-03-19] MEDS: TERAZOSIN HCL 1 MG CAP PO SCH (20:08)
[2025-03-19 20:27] VITALS: BP 142/96; PULSE 90; RESP 19; O2SAT 95
[2025-03-19 21:00] VITALS: BP 145/101; PULSE 93; RESP 18; TEMP 97.7; O2SAT 95
[2025-03-19] MEDS: DOCUSATE SOD 100 MG CAP PO SCH (21:42)
[2025-03-19] MEDS: CYCLOBENZAPRINE HCL 10 MG TAB PO SCH (21:42)
[2025-03-19] MEDS: ceFAZolin 1GM/50ML 50 ML IV SCH (23:11)
[2025-03-19] MEDS: HYDROcodone-ACET 10/325MG TAB PO PRN (23:12)
[2025-03-19] MEDS: D5W/SOD CHLO 0.9% 1,000 ML IV SCH (23:15)
[2025-03-20] VITALS (10 sets, daily range): BP systolic 130–146; BP diastolic 79–91; PULSE 78–96; RESP 16–19; TEMP 97.5–98.8; O2SAT 91–95
[2025-03-20] MEDS: METOPROLOL SUCCINATE XL 50 MG TAB PO SCH (09:46)
[2025-03-20] MEDS: BUPROPION HCL 100 MG PO SCH (10:00)
--- NOTE | 2025-03-20 12:57 | DVHINCON2 ---
Date Seen: Mar 20, [address] Sykes Family History: Alcoholism G8 BROTHER Diabetes mellitus G8 MOTHER FH: ALS (amyotrophic lateral sclerosis) G8 FATHER Hypertension G8 MOTHER G8 SISTER Allergies: Coded Allergies: Tamsulosin (Verified Allergy, Mild, 12/13/24) Home Meds Reported Medications Terazosin HCl (Terazosin Hydrochloride) 1 Mg Cap, 1 CAP PO HS 12/13/24 Zolpidem Tartrate (Zolpidem Tartrate) 10 Mg Tab, 1 TAB PO QHSP PRN 12/13/24 Bupropion Hcl (Bupropion Hcl Er) 100 Mg Tab, 1 TAB PO DAILY 12/13/24 Amlodipine Besylate (Amlodipine Besylate) 5 Mg Tab, 1 TAB PO DAILY 12/13/24 Finasteride (Finasteride) 5 Mg Tab, 1 TAB PO HS 12/13/24 Metoprolol Succinate (Metoprolol Succinate Er) 50 Mg Tab, 1 TAB PO DAILY 12/13/24 Current Medications Current Medications Medications (Trade) Dose Ordered Sig/Tito Route PRN Reason Start Time Stop Time Status Last Admin Dextrose/Sodium Chloride 1,000 ml @ 100 mls/hr Q10H IV 03/19/25 14:30 03/20/25 11:51 Ondansetron HCl (Zofran) 4 mg Q4HP PRN IV NAUSEA / VOMITING 03/19/25 14:30 Acetaminophen (Tylenol Tablet) 650 mg Q6HP PRN PO MILD PAIN (1-3 PAIN SCALE) 03/19/25 14:30 Acetaminophen/ Hydrocodone Bitart (Kane 10/325MG Tab) 1 tab Q6HP PRN PO MODERATE PAIN (4-6 PAIN SCALE) 03/19/25 14:30 03/20/25 10:01 Morphine Sulfate 1 mg Q4HP PRN IV SEVERE PAIN (7-10 PAIN SCALE) 03/19/25 14:30 Cyclobenzaprine HCl (Flexeril Tablet) 10 mg TID PO 03/19/25 22:00 03/20/25 06:01 Docusate Sodium (Colace Capsule) 100 mg BID PO 03/19/25 22:00 03/20/25 09:45 Cefazolin Sodium 50 ml @ 100 mls/hr Q8HR IV 03/19/25 22:00 03/21/25 14:29 03/20/25 05:59 Nitroglycerin (Ntrostat Sublingual) 0.4 mg Q5MINP PRN SL FOR CHEST PAIN 03/19/25 14:30 Morphine Sulfate 2 mg Q30M PRN IV FOR CHEST PAIN 03/19/25 14:30 Amlodipine Besylate (Norvasc Tablet) 5 mg DAILY PO 03/20/25 10:00 03/20/25 09:45 Finasteride (Proscar Tablet) 5 mg HS PO 03/19/25 22:00 03/19/25 20:06 Metoprolol Succinate (Toprol Xl) 50 mg DAILY PO 03/20/25 10:00 03/20/25 09:46 Terazosin HCl (Hytrin) 1 mg HS PO 03/19/25 22:00 03/19/25 20:08 Patient Own Medication 1 tab DAILY PO 03/20/25 10:00 Vital Signs Vital Signs Date Time Temp Pulse Resp B/P (MAP) Pulse Ox O2 Delivery O2 Flow Rate FiO2 03/20/25 09:46 96 138/91 03/20/25 09:00 97.9 18 95 97.9 03/20/25 08:00 Room Air* 0 21 Labs/Diagnostic Data Labs Test 03/15/25 07:23 Range/Units White Blood Count 5.2 4.4-10.8 10^3/uL Red Blood Count 5.27 4.5-5.90 10^6/uL Hemoglobin 15.3 13.5-17.5 g/dL Hematocrit 44.0 41.0-53.0 % Mean Corpuscular Volume 83.5 80.0-100.0 fL Mean Corpuscular Hemoglobin 29.0 28.0-32.0 pg Mean Corpuscular Hemoglobin Concent 34.7 32.0-36.0 g/dL Red Cell Distribution Width 13.5 11.8-14.3 % Platelet Count 148 140-450 10^3/uL Mean Platelet Volume 9.0 6.9-10.8 fL Neutrophils (%) (Auto) 58.9 37.0-80.0 % Lymphocytes (%) (Auto) 26.0 10.0-50.0 % Monocytes (%) (Auto) 11.3 0.0-12.0 % Eosinophils (%) (Auto) 2.9 0.0-7.0 % Basophils (%) (Auto) 0.9 0.0-2.0 % Neutrophils # (Auto) 3.0 1.6-8.6 10 ^3/uL Lymphocytes # (Auto) 1.3 0.4-5.4 10 ^3/uL Monocytes # (Auto) 0.6 0-1.3 10 ^3/uL Eosinophils # (Auto) 0.1 0-0.8 10 ^3/uL Basophils # (Auto) 0 0-0.2 10 ^3/uL Nucleated Red Blood Cells 0.0 % Prothrombin Time 11.1 9.3-11.8 sec Prothrombin Time INR 1.05 0.9-1.15 Activated Partial Thromboplast Time 30.0 24.5-34.5 SEC Urine Color Light-yellow Yellow Urine Clarity Clear Clear Urine pH 5.5 5.0-9.0 Urine Specific [place] 1.014 1.001-1.035 Urine Protein Negative Negative Urine Ketones Negative Negative Urine Blood Trace H Negative /uL Urine Nitrite Negative Negative Urine Bilirubin Negative Negative Urine Urobilinogen Normal Negative mg/dL Urine Leukocyte Esterase Negative Negative /uL Urine RBC 3 0 - 3 /hpf Urine Microscopic WBC < 1 0-3 /HPF Urine Squamous Epithelial Cells None seen <5 /hpf Urine Bacteria None seen None Seen /hpf Urine Glucose Normal Normal mg/dL Sodium Level 141 136-145 mmol/L Potassium Level 4.1 3.5-5.1 mmol/L Chloride Level 107 98-107 mmol/L Carbon Dioxide Level 24 20-31 mmol/L Anion Gap 10 5-15 Blood Urea Nitrogen 10 9-23 mg/dL Creatinine 0.90 0.700-1.30 mg/dL Glomerular Filtration Rate Calc 97 >90 mL/min BUN/Creatinine Ratio 11.1 10.0-20.0 Serum Glucose 121 H 74-106 mg/dL Calcium Level 9.1 8.7-10.4 mg/dL Total Bilirubin 0.6 0.2-1.0 mg/dL Aspartate Amino Transferase (AST) 26 13-40 U/L Alanine Aminotransferase (ALT) 50 H 7-40 U/L Alkaline Phosphatase 93 46-116 U/L Total Protein 6.9 5.7-8.2 g/dL Albumin 4.5 3.2-4.8 g/dL Assessment see dictated note Plan discussed with: Patient Date of Service: Mar 20, 2025 Billing Provider: DIETER LUDWIG MD Common Visit Codes: [id number] INP/OBS CARE (HIGH) DIETER LUDWIG MD Mar 20, 2025 12:57
--- NOTE | 2025-03-20 14:45 | DVHPN2 ---
Progress Note - Surgical Date Seen: Mar 20, 2025 Post op day Post op day: 1 Subjective Patient reports: No new complaints Review of Systems: HEENT:Normal, CVS:Normal, RESPIRATORY:Normal, GI:Normal, :Normal, MSK:Normal, NEURO:Normal Objective Vital signs Vital Sign Date Time Temp Pulse Resp B/P (MAP) Pulse Ox O2 Delivery O2 Flow Rate FiO2 03/20/25 09:46 96 138/91 03/20/25 09:00 97.9 18 95 97.9 03/20/25 08:00 Room Air* 0 21 Total Intake and Output 03/19/25 03/19/25 03/20/25 15:00 23:00 07:00 Intake Total 110 ml 1300 ml Output Total 0 ml 5 ml 1300 ml Balance 110 ml -5 ml 0 ml Medications Current Medications Medications Dose Ordered Sig/Tito Route Start Time Stop Time Status Last Admin Dose Admin Ondansetron HCl 4 mg Q4HP PRN IV 03/19/25 14:30 Acetaminophen 650 mg Q6HP PRN PO 03/19/25 14:30 Acetaminophen/ Hydrocodone Bitart 1 tab Q6HP PRN PO 03/19/25 14:30 03/20/25 10:01 1 TAB Morphine Sulfate 1 mg Q4HP PRN IV 03/19/25 14:30 Cyclobenzaprine HCl 10 mg TID PO 03/19/25 22:00 03/20/25 14:30 10 MG Docusate Sodium 100 mg BID PO 03/19/25 22:00 03/20/25 09:45 100 MG Cefazolin Sodium 50 ml @ 100 mls/hr Q8HR IV 03/19/25 22:00 03/21/25 14:29 03/20/25 14:30 100 MLS/HR Nitroglycerin 0.4 mg Q5MINP PRN SL 03/19/25 14:30 Morphine Sulfate 2 mg Q30M PRN IV 03/19/25 14:30 Amlodipine Besylate 5 mg DAILY PO 03/20/25 10:00 03/20/25 09:45 5 MG Finasteride 5 mg HS PO 03/19/25 22:00 03/19/25 20:06 5 MG Metoprolol Succinate 50 mg DAILY PO 03/20/25 10:00 03/20/25 09:46 50 MG Terazosin HCl 1 mg HS PO 03/19/25 22:00 03/19/25 20:08 1 MG Patient Own Medication 1 tab DAILY PO 03/20/25 10:00 Dextrose/Sodium Chloride 1,000 ml @ 75 mls/hr [id number] IV 03/20/25 13:00 UNV Laboratory Laboratory Tests 03/15/25 07:23 Test 03/15/25 07:23 Range/Units Serum Glucose 121 H 74-106 mg/dL Examination: GENERAL:Normal, HEENT:Normal, NECK:Normal, LUNGS:Normal, CVS:Normal, ABDOMEN:Normal, MSK:Normal, SKIN:Normal (left anterior neck site well spproximated with winston. drain intact- removed today), NEURO:Normal (improved in preoperative syptoms), :Abnormal (villaseñor in place, due to prostrat and urinary retention) Problem List/Assessment/Plan Problems: (1) Muscle spasms of neck (2) Acute post-operative pain Assessment and Plan POD #1 events of the day drain DC dc villaseñor encourage ambulation patient to try and relax to void prior to going back to bed after walking. in and out cath if patient has retention again patient progressing to DC sore throat, airway patent- Cepacol, Decadron 10mg IV x 1 Disposition: -Pending -Discharge RX: Patient has picked up all of his postoperative prescriptions already -Follow up appointment: with Dr Sykes on scheduled appointment [phone] [id number] [facility] [address] Tapia [address] [place] [id number] -Pain: - IV pain meds post op day 1, with PO supplementation, goal is to progress weaning off IV medications and control pain with PO only. morphine 1mg q 4 hours (PAIN 7-10) - P.O. analgesics:Tylenol 650MG (PAIN 1-3) [place] 10/325 mg (PAIN 4-6) - Muscle relaxers scheduled administration. This is a beneficial medications for the incisional pain as it is mostly related to muscle spasms. Flexeril 10 mg TID - Cepacol throat lozenges as needed for sore throat -Antibiotics Operative recommendations: -Postoperative dose:-Post operative antibiotics cefazolin 1 g IV piggyback every 8 hours x 48 hours total of 6 doses -DVT PPX: -Hold all chemical DVT/ blood thinners for 14 days postoperatively -use mechanical DVT PPX such as SCD's, ambulation -Activity: -Pending PT evaluation and patients progression -Sit at side of bed for meals -Goal: Ambulate independently and safely (may use assistive devices if needed) -Medical Therapy goals: -Afebrile- Patient may develop a expected post operative fever by day 2-3, this may not be accompanied with a elevation in WBC. if fever develops: Acetaminophen for fever. Albuterol nebulizer Tx every 12 hours for 24 hours to facilitate adequate lung expansion and prevent development of atelectasis. -Euglycemic: bloods sugars under 130mmol/L for optimal healing -Normotensive: Avoid events of hypertension. This helps to keep post operative healing intact and avoids destabilization of beneficial hemostatic coagulation. Drains -Bulb drains: record output and characteristics of the drainage EVERY 6 HOURS- if there is no output indicate this by documenting 0ml output in note.. These will be to thumbprint compression unless otherwise ordered. Record output as well as amount in a note at least every 6 houtrs- more if indicated. Wound drainage is described by type, color, amount, and odor. Drainage can be 1 serous: Clear and thin, may be present in healing healthy wound. 2 serosanguineous containing blood may also be present and healthy healing wound 3. Sanguinous primarily blood 4. Purulent this is thick, white, and pus like. It may be indicated to give of a infection and should constitute a call to the provider immediately with the plan that the sample should be cultured. -Villaseñor: -DC in OR -Dressings -Anterior cervical patients: Initial surgical dressing may be reinforced if needed. If there is excessive bleeding, leaking, drainage in the bulb drain notify provider -Bowel management: -Colace 100mg bid -Diet: -Clear liquid diet and advance as patient tolerates within dietary limitations ( example: diabetic, Cardiac) -Incentive Spirometer: -10 x hour while awake, RN please educate and observe repeat demonstration, have IS at bedside POD #1 -X-rays: - none indicated at this time -Consults: -Physical Therapy evaluation, treatment recommendations, and discharge recommendations Call with questions Mitchel Barba ACNP- Orthopaedic Spine Surgery nurse practitioner For Dr Juan Manuel Sykes Patient was examined, chart reviewed, labs evaluated, and diagnostic studies and findings analyzed. Case was discussed with Dr. Winston Sykes who formulated the plan of care. This medical document was created using an electronic medical record system with [employer] dictation system. Although this document has been carefully reviewed, there might still be some phonetic and typographical errors. These areas are purely typographical due to imperfections of the software programs, and do not reflect any compromise in the patient's medical care. My Orders My Orders Orders - SIM BARBA NP Procedure Category Date Status Time Incentive Spirometry ORDERS 03/19/25 Transmitted Q 1hr 15:20 Communication Order ORDERS 03/19/25 Transmitted 18:00 Communication Order ORDERS 03/20/25 Transmitted 00:00 Communication Order ORDERS 03/20/25 Transmitted 06:00 Communication Order ORDERS 03/20/25 Transmitted 12:00 Communication Order ORDERS 03/20/25 Transmitted 18:00 Communication Order ORDERS 03/21/25 Transmitted 00:00 Communication Order ORDERS 03/21/25 Transmitted 06:00 Communication Order ORDERS 03/21/25 Transmitted 12:00 Communication Order ORDERS 03/21/25 Transmitted 18:00 Communication Order ORDERS 15 Transmitted 00:00 Communication Order ORDERS 15 Transmitted 06:00 Communication Order ORDERS 15 Transmitted 12:00 Communication Order ORDERS 15 Transmitted 18:00 Communication Order ORDERS 16 Transmitted 00:00 Communication Order ORDERS 16 Transmitted 06:00 Communication Order ORDERS 16 Transmitted 12:00 Communication Order ORDERS 16 Transmitted 18:00 Communication Order ORDERS 17 Transmitted 00:00 Communication Order ORDERS 17 Transmitted 06:00 Communication Order ORDERS 17 Transmitted 12:00 Communication Order ORDERS 17 Transmitted 18:00 Communication Order ORDERS 18 Transmitted 00:00 Communication Order ORDERS 18 Transmitted 06:00 Communication Order ORDERS 18 Transmitted 12:00 Communication Order ORDERS 18 Transmitted 18:00 Communication Order ORDERS 19 Transmitted 00:00 Communication Order ORDERS 03/26/25 Transmitted 06:00 Communication Order ORDERS 03/26/25 Transmitted 12:00 Communication Order ORDERS 03/26/25 Transmitted 18:00 Communication Order ORDERS 03/27/25 Transmitted 00:00 Communication Order ORDERS 03/27/25 Transmitted 06:00 Communication Order ORDERS 03/27/25 Transmitted 12:00 Communication Order ORDERS 8/20/25 Transmitted 18:00 Communication Order ORDERS 8/21/25 Transmitted 00:00 Communication Order ORDERS 8/21/25 Transmitted 06:00 Communication Order ORDERS 8/21/25 Transmitted 12:00 Communication Order ORDERS 8/21/ Transmitted 18:00 Communication Order ORDERS 8/22/25 Transmitted 00:00 Communication Order ORDERS 8/22/25 Transmitted 06:00 Communication Order ORDERS 8/22/ Transmitted 12:00 Communication Order ORDERS 8/22/25 Transmitted 18:00 Communication Order ORDERS 8/23/25 Transmitted 00:00 Communication Order ORDERS 8/23/25 Transmitted 06:00 Communication Order ORDERS 8/23/25 Transmitted 12:00 Communication Order ORDERS 8/23/ Transmitted 18:00 Communication Order ORDERS 824/25 Transmitted 00:00 Communication Order ORDERS 8/24/25 Transmitted 06:00 Communication Order ORDERS 8/24/25 Transmitted 12:00 Communication Order ORDERS 8/24/25 Transmitted 18:00 Communication Order ORDERS 825/25 Transmitted 00:00 Communication Order ORDERS 825/25 Transmitted 06:00 Communication Order ORDERS 825/25 Transmitted 12:00 Communication Order ORDERS 825/25 Transmitted 18:00 Communication Order ORDERS 8/25 Transmitted 00:00 Communication Order ORDERS 8/25 Transmitted 06:00 Communication Order ORDERS 8/25 Transmitted 12:00 Communication Order ORDERS 8/25 Transmitted 18:00 Communication Order ORDERS 8/27/25 Transmitted 00:00 Communication Order ORDERS 8/27/25 Transmitted 06:00 Communication Order ORDERS 8/27/25 Transmitted 12:00 Communication Order ORDERS 827/25 Transmitted 18:00 Communication Order ORDERS 8/28/25 Transmitted 00:00 Communication Order ORDERS 8/28/25 Transmitted 06:00 Communication Order ORDERS 8/28/25 Transmitted 12:00 Communication Order ORDERS 8/28/25 Transmitted 18:00 Communication Order ORDERS 8/29/25 Transmitted 00:00 Communication Order ORDERS 8/29/25 Transmitted 06:00 Communication Order ORDERS 8/29/25 Transmitted 12:00 Communication Order ORDERS 8/29/25 Transmitted 18:00 Communication Order ORDERS 8/30/25 Transmitted 00:00 Communication Order ORDERS 8/30/25 Transmitted 06:00 Communication Order ORDERS 8/30/25 Transmitted 12:00 Communication Order ORDERS 8/30/25 Transmitted 18:00 Communication Order ORDERS 8/31/25 Transmitted 00:00 Communication Order ORDERS 8//25 Transmitted 06:00 Communication Order ORDERS 04/07/25 Transmitted 12:00 Communication Order ORDERS 04/07/25 Transmitted 18:00 Communication Order ORDERS 04/08/25 Transmitted 00:00 Communication Order ORDERS 04/08/25 Transmitted 06:00 Communication Order ORDERS 04/08/25 Transmitted 12:00 Communication Order ORDERS 04/08/25 Transmitted 18:00 Communication Order ORDERS 04/09/25 Transmitted 00:00 Communication Order ORDERS 2 Transmitted 06:00 Communication Order ORDERS 2 Transmitted 12:00 Communication Order ORDERS 2 Transmitted 18:00 Communication Order ORDERS 04/10/25 Transmitted 00:00 Communication Order ORDERS 04/10/25 Transmitted 06:00 Communication Order ORDERS 04/10/25 Transmitted 12:00 Communication Order ORDERS 04/10/25 Transmitted 18:00 Communication Order ORDERS 04/11/25 Transmitted 00:00 Communication Order ORDERS 04/11/25 Transmitted 06:00 Communication Order ORDERS 04/11/25 Transmitted 12:00 Communication Order ORDERS 04/11/25 Transmitted 18:00 Communication Order ORDERS 04/12/25 Transmitted 00:00 Communication Order ORDERS 5 Transmitted 06:00 Communication Order ORDERS 5 Transmitted 12:00 Communication Order ORDERS 5 Transmitted 18:00 Communication Order ORDERS 6 Transmitted 00:00 Communication Order ORDERS 04/13/25 Transmitted 06:00 Plan discussed with Plan discussed with: Patient, Other (Danitza RN x [phone]) Visit Coding Surgery Date of Service if different f: Mar 19, 2025 Billing Provider: SIM BARBA NP Surgery Visit Codes: NOT BILLABLE SIM BARBA NP Mar 20, 2025 14:45
--- NOTE | 2025-03-20 15:16 | DVHINCON2 ---
DATE OF CONSULTATION: 03/20/2025 INTERNAL MEDICINE CONSULT HISTORY OF PRESENT ILLNESS: The patient is a 64-year-old gentleman who was admitted after he underwent surgery on the cervical spine for severe cervical spinal stenosis. The patient at this time complains of pain during swallowing. No chest pain, no shortness of breath, no nausea or vomiting. The patient did have difficulty in urination last night. PAST MEDICAL HISTORY: Significant for BPH, hypertension, and anxiety. MEDICATIONS: He takes amlodipine, bupropion, finasteride, metoprolol, Hytrin, and zolpidem. ALLERGIES: FLOMAX. SOCIAL HISTORY: Denies smoking or alcohol. Lives at home with his . FAMILY HISTORY: Negative. PHYSICAL EXAMINATION: GENERAL: The patient is awake, alert. VITAL SIGNS: Temperature of 98.1, pulse 96 per minute, blood pressure 138/91. SHEENT: Unremarkable. NECK: There is no JVD. No pedal edema. LUNGS: Equal bilaterally. No added sounds. CARDIOVASCULAR: S1 and S2 is regular without murmurs. ABDOMEN: Soft. There is no organomegaly. NEUROLOGIC: Nonfocal. MUSCULOSKELETAL: There is a dressing on the left side of the neck. ASSESSMENT AND PLAN: * Urinary retention for which the patient is currently on the Bravo catheter. * BPH for which he will continue on finasteride and on Hytrin. * Obesity. * Hypertension. * Anxiety. * Status post surgery on the neck for cervical spinal stenosis. The patient will be given pain medication and receive physical therapy. MD MARK Schuler/ANGELINA TID: [id number] RECEIPT: [id number]
[2025-03-20] MEDS: D5W/SOD CHLO 0.9% 1,000 ML IV SCH (15:19)
[2025-03-20 19:52] LABS: Urine Protein, UAD TRACE (Negative)
[2025-03-20] MEDS: MORPHINE SULFATE INJ 2 MG/ml SYRG IV PRN (22:11)
[2025-03-21 01:00] VITALS: BP 128/83; PULSE 65; RESP 18; TEMP 98.1; O2SAT 96
[2025-03-21 05:00] VITALS: BP 133/91; PULSE 73; RESP 18; TEMP 98.1; O2SAT 92
[2025-03-21 08:00] VITALS: PULSE 58; O2SAT 93
[2025-03-21 08:15] LABS: Hematocrit 42.3 % (41.0-53.0); Hemoglobin 14.8 g/dL (13.5-17.5); Mean Corpuscular Hemoglobin 29.3 pg (28.0-32.0); Mean Corpuscular Volume 83.4 fL (80.0-100.0); Nucleated Red Blood Cells % 0.0 %
[2025-03-21 08:26] LABS: Alanine Aminotransferase 37 U/L (7-40); Albumin 4.5 g/dL (3.2-4.8); Alkaline Phosphatase 66 U/L (46-116); Anion Gap 10 (5-15); BUN/Creatinine Ratio 17.7 (10.0-20.0); Blood Urea Nitrogen 14 mg/dL (9-23); Calcium 9.2 mg/dL (8.7-10.4); Carbon Dioxide 23 mmol/L (20-31); Chloride 107 mmol/L (98-107); Potassium 4.3 mmol/L (3.5-5.1); Sodium 140 mmol/L (136-145); Total Protein 6.9 g/dL (5.7-8.2)
[2025-03-21 08:27] LABS: Bilirubin, Total 0.7 mg/dL (0.2-1.0); Glucose 147 mg/dL (74-106)
[2025-03-21 09:00] VITALS: BP 121/81; PULSE 63; RESP 18; TEMP 97.3; O2SAT 95
[2025-03-21 12:56] VITALS: BP 130/88; PULSE 68; RESP 20; TEMP 97.9; O2SAT 98
--- NOTE | 2025-03-21 15:32 | DVHPN2 ---
Progress Note - Surgical Date Seen: Mar 21, 2025 Post op day Post op day: 2 Subjective Patient reports: No new complaints, Feels better Review of Systems: HEENT:Normal, CVS:Normal, RESPIRATORY:Normal, GI:Normal, MSK:Normal, NEURO:Normal (in preoperative symptoms) Objective Vital signs Vital Sign Date Time Temp Pulse Resp B/P (MAP) Pulse Ox O2 Delivery O2 Flow Rate FiO2 03/21/25 12:56 97.9 68 20 130/88 (102) 98 97.9 03/21/25 08:00 Room Air* 0 21 Total Intake and Output 03/20/25 03/20/25 03/21/25 15:00 23:00 07:00 Intake Total 1875 ml 750 ml Output Total 1700 ml 250 ml Balance -1700 ml 1625 ml 750 ml Medications Current Medications Medications Dose Ordered Sig/Tito Route Start Time Stop Time Status Last Admin Dose Admin Ondansetron HCl 4 mg Q4HP PRN IV 03/19/25 14:30 Acetaminophen 650 mg Q6HP PRN PO 03/19/25 14:30 Acetaminophen/ Hydrocodone Bitart 1 tab Q6HP PRN PO 03/19/25 14:30 03/21/25 09:06 1 TAB Cyclobenzaprine HCl 10 mg TID PO 03/19/25 22:00 03/21/25 13:50 10 MG Docusate Sodium 100 mg BID PO 03/19/25 22:00 03/21/25 08:55 100 MG Nitroglycerin 0.4 mg Q5MINP PRN SL 03/19/25 14:30 Morphine Sulfate 2 mg Q30M PRN IV 03/19/25 14:30 Amlodipine Besylate 5 mg DAILY PO 03/20/25 10:00 03/21/25 08:55 5 MG Finasteride 5 mg HS PO 03/19/25 22:00 03/20/25 21:25 5 MG Metoprolol Succinate 50 mg DAILY PO 03/20/25 10:00 03/21/25 08:55 50 MG Terazosin HCl 1 mg HS PO 03/19/25 22:00 03/20/25 21:26 1 MG Patient Own Medication 1 tab DAILY PO 03/20/25 10:00 Dextrose/Sodium Chloride 1,000 ml @ 75 mls/hr [id number] IV 03/20/25 13:00 03/20/25 15:19 75 MLS/HR Morphine Sulfate 2 mg Q4HP PRN IV 03/20/25 16:00 03/20/25 22:11 2 MG Laboratory Laboratory Tests 03/21/25 06:30 Test 03/21/25 06:30 Range/Units Serum Glucose 147 H 74-106 mg/dL Examination: GENERAL:Normal, HEENT:Normal, NECK:Normal, LUNGS:Normal, ABDOMEN:Normal, MSK:Normal, SKIN:Normal, NEURO:Normal, :Normal (able to void without issue) Problem List/Assessment/Plan Problems: (1) Acute post-operative pain (2) Muscle spasms of neck Assessment and Plan POD #2 events of the day ambulation patient has had no further trouble with voiding Ambulating well in adrian with PT, stable Clear to DC today sore throat,improved Disposition: -home with home health visit -Discharge RX: Patient has picked up all of his postoperative prescriptions already -Follow up appointment: with Dr Sykes on scheduled appointment [id number] [facility] [address] Tapia [address] [place] [id number] -Pain: - IV pain meds post op day 1, with PO supplementation, goal is to progress weaning off IV medications and control pain with PO only. morphine 1mg q 4 hours (PAIN 7-10) - P.O. analgesics:Tylenol 650MG (PAIN 1-3) Rison 10/325 mg (PAIN 4-6) - Muscle relaxers scheduled administration. This is a beneficial medications for the incisional pain as it is mostly related to muscle spasms. Flexeril 10 mg TID - Cepacol throat lozenges as needed for sore throat -Antibiotics Operative recommendations: -Postoperative dose:-Post operative antibiotics cefazolin 1 g IV piggyback every 8 hours x 48 hours total of 6 doses -DVT PPX: -Hold all chemical DVT/ blood thinners for 14 days postoperatively -use mechanical DVT PPX such as SCD's, ambulation -Activity: -Pending PT evaluation and patients progression -Sit at side of bed for meals -Goal: Ambulate independently and safely (may use assistive devices if needed) -Medical Therapy goals: -Afebrile- Patient may develop a expected post operative fever by day 2-3, this may not be accompanied with a elevation in WBC. if fever develops: Acetaminophen for fever. Albuterol nebulizer Tx every 12 hours for 24 hours to facilitate adequate lung expansion and prevent development of atelectasis. -Euglycemic: bloods sugars under 130mmol/L for optimal healing -Normotensive: Avoid events of hypertension. This helps to keep post operative healing intact and avoids destabilization of beneficial hemostatic coagulation. -Dressings -changed prior to DC -Bowel management: -Colace 100mg bid -Diet: - patient tolerating diet within dietary limitations ( example: diabetic, Cardiac) -Incentive Spirometer: -10 x hour while awake, RN please educate and observe repeat demonstration, have IS at bedside POD #1 -X-rays: - none indicated at this time -Consults: -Physical Therapy evaluation, treatment recommendations, and discharge recommendations Call with questions Mitchel Barba ACNP- Orthopaedic Spine Surgery nurse practitioner For Dr Juan Manuel Sykes Patient was examined, chart reviewed, labs evaluated, and diagnostic studies and findings analyzed. Case was discussed with Dr. Winston Sykes who formulated the plan of care. This medical document was created using an electronic medical record system with [employer] dictation system. Although this document has been carefully reviewed, there might still be some phonetic and typographical errors. These areas are purely typographical due to imperfections of the software programs, and do not reflect any compromise in the patient's medical care. My Orders My Orders Orders - SIM BARBA NP Procedure Category Date Status Time Morphine Sulfate PHA 03/20/25 In Process Injection 16:00 Plan discussed with Plan discussed with: Patient, Spouse, Other (Danitza LINARES) Visit Coding Surgery Date of Service if different f: Mar 19, 2025 Billing Provider: SIM BARBA NP Surgery Visit Codes: NOT BILLABLE SIM BARBA NP Mar 21, 2025 15:32
--- NOTE | 2025-03-21 15:52 | DVHDS2 ---
ASSESSMENT ASSESSMENT Hospital Course The patient arrived for a elective spine surgery with Dr. SYKES. Surgery went as planned with no complications. After a short stay in the PACU patient was admitted to the hospital for postoperative care and pain management over the course of 2 postoperative days the patient was able to tolerate a diet, ambulate independently, the pain has been managed with oral analgesics. The surgical site is well-approximated with sutures, some residual drainage continues from drain insertion sites after removal, however it is manageable with daily wound care and dressing changes. Some improvement to preoperative symptoms of extremities, strength and motion. There is new post operative pain that is localized to the surgical site. The patient will follow-up with Dr. Sykes for wound check and suture check or staple removal. Patient is awake alert and oriented, assessment was done with bedside nurse, at bedside as well as nurse practitioner on the phone Patient was able to lift his arms over his head and touch his hands together Patient had equal science professor bilaterally to his hands Patient had equal pedal pushes Patient has been able to ambulate out in the hallway with physical therapy, no complaints of dizziness no falling, patient appeared stable and felt stable Dressing is still clean from the dressing change yesterday after the drain was removed, very small area of strike through was noted and monitored by nursing staff with no increase. 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 and large herniated discs at C5/6 and C4/5Procedure: Cervical 3 to 4 anterior cervical discectomy with Cervical 3-4foraminotomies and facetectomies to decompression the spinal canal andCervical 4 nerve rootsCervical 4 to 5 anterior cervical discectomy with Cervical 4-5foraminotom ies and facetectomies to decompression the spinal canal andCervical 5 nerve rootsCervical 5 to 6 anterior cervical discectomy with Cervical 5- 6foraminotomies and facetectomies to decompression the spinal canal andCervical 6 nerve roots Cervical 3-6 anterior cervical FusionCervical 3-6 anterior cervical instrumentation with freestanding cagesCervical 3-4 placement of allograft prosthetic deviceCervical 4-5 placement of allograft prosthetic deviceCervical 5-6 placement of allograft prosthetic device Problems: (1) Acute post-operative pain Assessments: Medications sent to patient's pharmacy of choice and picked up (2) Muscle spasms of neck Assessments: Medications sent to patient's pharmacy of choice and picked up SIM BARBA PERINATAL INSTRUCTOR Mar 21, 2025 15:52
--- NOTE | 2025-03-21 15:55 | DVHDS2 ---
Discharge Summary Date of Admission Mar 19, 2025 at 14:21 Date of Discharge: Mar 21, 2025 Admitting Diagnosis Cervical stenosis with neurogenic claudication Wounds: Left anterior neck well approximated with winston, small drain hole is intact minimal output over the past 24 hours. Initial ALBERTINA drain output minimal drain was discontinued on postoperative day one. No redness swelling or drainage Labs/Diagnostic Data: Laboratory Results Test 03/21/25 06:30 03/20/25 14:42 03/15/25 07:23 White Blood Count 11.7 10^3/uL (4.4-10.8) Red Blood Count 5.07 10^6/uL (4.5-5.90) Hemoglobin 14.8 g/dL (13.5-17.5) Hematocrit 42.3 % (41.0-53.0) Mean Corpuscular Volume 83.4 fL (80.0-100.0) Mean Corpuscular Hemoglobin 29.3 pg (28.0-32.0) Mean Corpuscular Hemoglobin Concent 35.1 g/dL (32.0-36.0) Red Cell Distribution Width 13.4 % (11.8-14.3) Platelet Count 135 10^3/uL (140-450) Mean Platelet Volume 9.2 fL (6.9-10.8) Neutrophils (%) (Auto) 90.1 % (37.0-80.0) Lymphocytes (%) (Auto) 5.1 % (10.0-50.0) Monocytes (%) (Auto) 4.6 % (0.0-12.0) Eosinophils (%) (Auto) 0.0 % (0.0-7.0) Basophils (%) (Auto) 0.2 % (0.0-2.0) Neutrophils # (Auto) 10.6 10 ^3/uL (1.6-8.6) Lymphocytes # (Auto) 0.6 10 ^3/uL (0.4-5.4) Monocytes # (Auto) 0.5 10 ^3/uL (0-1.3) Eosinophils # (Auto) 0 10 ^3/uL (0-0.8) Basophils # (Auto) 0 10 ^3/uL (0-0.2) Nucleated Red Blood Cells 0.0 % Sodium Level 140 mmol/L (136-145) Potassium Level 4.3 mmol/L (3.5-5.1) Chloride Level 107 mmol/L (98-107) Carbon Dioxide Level 23 mmol/L (20-31) Anion Gap 10 (5-15) Blood Urea Nitrogen 14 mg/dL (9-23) Creatinine 0.79 mg/dL (0.700-1.30) Glomerular Filtration Rate Calc 100 mL/min (>90) BUN/Creatinine Ratio 17.7 (10.0-20.0) Serum Glucose 147 mg/dL (74-106) Calcium Level 9.2 mg/dL (8.7-10.4) Total Bilirubin 0.7 mg/dL (0.2-1.0) Aspartate Amino Transferase (AST) 18 U/L (13-40) Alanine Aminotransferase (ALT) 37 U/L (7-40) Alkaline Phosphatase 66 U/L (46-116) Total Protein 6.9 g/dL (5.7-8.2) Albumin 4.5 g/dL (3.2-4.8) Urine Color Light-yellow (Yellow) Urine Clarity Clear (Clear) Urine pH 6.0 (5.0-9.0) Urine Specific [place] 1.019 (1.001-1.035) Urine Protein Trace (Negative) Urine Ketones Negative (Negative) Urine Blood 1+ /uL (Negative) Urine Nitrite Negative (Negative) Urine Bilirubin Negative (Negative) Urine Urobilinogen Normal mg/dL (Negative) Urine Leukocyte Esterase Trace /uL (Negative) Urine RBC 18 /hpf (0 - 3) Urine Microscopic WBC 3 /HPF (0-3) Urine Squamous Epithelial Cells Few /hpf (<5) Urine Bacteria None seen /hpf (None Seen) Urine Glucose Normal mg/dL (Normal) Prothrombin Time 11.1 sec (9.3-11.8) Prothrombin Time INR 1.05 (0.9-1.15) Activated Partial Thromboplast Time 30.0 SEC (24.5-34.5) Other Laboratory Tests 03/21/25 06:30 Brief Hx & Hospital Course: The patient arrived for a elective spine surgery with Dr. SYKES. Surgery went as planned with no complications. After a short stay in the PACU patient was admitted to the hospital for postoperative care and pain management over the course of 2 postoperative days the patient was able to tolerate a diet, ambulate independently, the pain has been managed with oral analgesics. The surgical site is well-approximated with sutures, some residual drainage continues from drain insertion sites after removal, however it is manageable with daily wound care and dressing changes. Some improvement to preoperative symptoms of extremities, strength and motion. There is new post operative pain that is localized to the surgical site. The patient will follow-up with Dr. Sykes for wound check and suture check or staple removal. Patient is awake alert and oriented, assessment was done with bedside nurse, at bedside as well as nurse practitioner on the phone Patient was able to lift his arms over his head and touch his hands together Patient had equal volcanology teacher bilaterally to his hands Patient had equal pedal pushes Patient has been able to ambulate out in the hallway with physical therapy, no complaints of dizziness no falling, patient appeared stable and felt stable Dressing is still clean from the dressing change yesterday after the drain was removed, very small area of strike through was noted and monitored by nursing staff with no increase. Surgical site area will be cleaned today and a new dressing will be applied Patient and registered nurse all in agreement the patient is in a good condition to be able to go home Medications have been picked up, this was confirmed by patient Patient has been able to void, he has been able to control his urine stream without any problems Patient has passed gas Patient's pain is under control Patient is ambulating safely Patient is able to tolerating food and liquid Operations or Procedures Cervical 3-6 anterior cervical diskectomy and fusion Condition at Discharge: Good Final Diagnosis/Problems List Acute postoperative pain status post cervical spine surgery Problems List: (1) Acute post-operative pain Status: Acute (2) Muscle spasms of neck Status: Acute Discharge Disposition: Home Discharge Instruct/Medications Diet: See Comment Diet comment: You may resume your regular diet, be sure to choose foods that are soft and easy for you to swallow. Make sure you to your food thoroughly before swallowing. If you have any difficulty breathing if food gets stuck in her throat you need to go to the emergency room Activity: Light activity Activity comment: Continue to move your neck left and right from [id number] in a slow fashion, your flexibility we will increase. Do not force any movements. Continue to walk as frequently as possible. Do not put your pillow directly behind her head make sure part of the pillow is under her shoulders and your head is being cradled by the entire pillow we do not want to for sure had forward let it dangle too far back we want to try and keep it in neutral alignment. Follow Up/Referral: @ 8:15 am Call [phone] for a appointment, or to change or confirm your appoinment [address] [facility], [address], [place] [id number] Medications: Medications were sent on your preop visit and picked up already, pain medications were sent as well as muscle relaxers and vitamins which will help with your bone healing Scheduled Amlodipine Besylate (Amlodipine Besylate), 1 TAB PO DAILY, (Reported) Bupropion Hcl (Bupropion Hcl Er), 1 TAB PO DAILY, (Reported) Finasteride (Finasteride), 1 TAB PO HS, (Reported) Metoprolol Succinate (Metoprolol Succinate Er), 1 TAB PO DAILY, (Reported) Terazosin HCl (Terazosin Hydrochloride), 1 CAP PO HS, (Reported) Scheduled PRN Zolpidem Tartrate (Zolpidem Tartrate), 1 TAB PO QHSP PRN, (Reported) Discharge Statement: "Patient was advised to return to the ER or call 911 if any headaches, dizziness, shortness of breath, chest pain, abdominal pain, bleeding, fevers, or worsening of medical condition. Patient was counseled about treatment plan, medications, possible side effects, patientverbalized understanding. All questions were answered to the best of my ability. This discharge took greater then 30 minutes in planning, reviewing documentation, counseling the patient, and discussing with other team members." ASSESSMENT ASSESSMENT Hospital Course The patient arrived for a elective spine surgery with Dr. SYKES. Surgery went as planned with no complications. After a short stay in the PACU patient was admitted to the hospital for postoperative care and pain management over the course of 2 postoperative days the patient was able to tolerate a diet, ambulate independently, the pain has been managed with oral analgesics. The surgical site is well-approximated with sutures, some residual drainage continues from drain insertion sites after removal, however it is manageable with daily wound care and dressing changes. Some improvement to preoperative symptoms of extremities, strength and motion. There is new post operative pain that is localized to the surgical site. The patient will follow-up with Dr. Sykes for wound check and suture check or staple removal. Patient is awake alert and oriented, assessment was done with bedside nurse, at bedside as well as nurse practitioner on the phone Patient was able to lift his arms over his head and touch his hands together Patient had equal volcanology teacher bilaterally to his hands Patient had equal pedal pushes Patient has been able to ambulate out in the hallway with physical therapy, no complaints of dizziness no falling, patient appeared stable and felt stable Dressing is still clean from the dressing change yesterday after the drain was removed, very small area of strike through was noted and monitored by nursing staff with no increase. Surgical site area will be cleaned today and a new dressing will be applied Patient and registered nurse all in agreement the patient is in a good condition to be able to go home Medications have been picked up, this was confirmed by patient Patient has been able to void, he has been able to control his urine stream without any problems Patient has passed gas Patient's pain is under control Patient is ambulating safely Patient is able to tolerating food and liquid Assessment Medications sent to patient's pharmacy of choice and picked up Problems: (1) Acute post-operative pain Assessments: Medications sent to patient's pharmacy of choice and picked up (2) Muscle spasms of neck Assessments: Medications sent to patient's pharmacy of choice and picked up SIM BARBA NP Mar 21, 2025 15:55
--- NOTE | 2025-03-21 16:34 | DVHPN2 ---
Progress Note Date Seen: Mar 21, 2025 Medical Necessity Reason Pt with a Central, PICC or Fol: No Subjective Patient reports: No new complaints Review of Systems: HEENT:Normal, CVS:Normal, RESPIRATORY:Normal, GI:Normal, :Normal, MSK:Normal, NEURO:Normal Objective vital signs Vital Sign Date Time Temp Pulse Resp B/P (MAP) Pulse Ox O2 Delivery O2 Flow Rate FiO2 03/21/25 12:56 97.9 68 20 130/88 (102) 98 97.9 03/21/25 08:00 Room Air* 0 21 Total Intake and Output 03/20/25 03/20/25 03/21/25 15:00 23:00 07:00 Intake Total 1875 ml 750 ml Output Total 1700 ml 250 ml Balance -1700 ml 1625 ml 750 ml medications Current Medications Medications Dose Ordered Sig/Tito Route Start Time Stop Time Status Last Admin Dose Admin Ondansetron HCl 4 mg Q4HP PRN IV 03/19/25 14:30 Acetaminophen 650 mg Q6HP PRN PO 03/19/25 14:30 Acetaminophen/ Hydrocodone Bitart 1 tab Q6HP PRN PO 03/19/25 14:30 03/21/25 09:06 1 TAB Cyclobenzaprine HCl 10 mg TID PO 03/19/25 22:00 03/21/25 13:50 10 MG Docusate Sodium 100 mg BID PO 03/19/25 22:00 03/21/25 08:55 100 MG Nitroglycerin 0.4 mg Q5MINP PRN SL 03/19/25 14:30 Morphine Sulfate 2 mg Q30M PRN IV 03/19/25 14:30 Amlodipine Besylate 5 mg DAILY PO 03/20/25 10:00 03/21/25 08:55 5 MG Finasteride 5 mg HS PO 03/19/25 22:00 03/20/25 21:25 5 MG Metoprolol Succinate 50 mg DAILY PO 03/20/25 10:00 03/21/25 08:55 50 MG Terazosin HCl 1 mg HS PO 03/19/25 22:00 03/20/25 21:26 1 MG Patient Own Medication 1 tab DAILY PO 03/20/25 10:00 Dextrose/Sodium Chloride 1,000 ml @ 75 mls/hr [id number] IV 03/20/25 13:00 03/20/25 15:19 75 MLS/HR Morphine Sulfate 2 mg Q4HP PRN IV 03/20/25 16:00 03/20/25 22:11 2 MG Examination: GENERAL:Normal, HEENT:Normal, NECK:Normal, LUNGS:Normal, CVS:Normal, ABDOMEN:Normal, MSK:Normal, MSK:Abnormal (left neck dressing), SKIN:Normal, NEURO:Normal, :Normal laboratory and microbiology Laboratory Tests 03/21/25 06:30 Test 03/21/25 06:30 Range/Units Serum Glucose 147 H 74-106 mg/dL Problem List/Assessment/Plan Problem List/Assessment/Plan * Urinary retention for which the patient is currently on the Bravo catheter- removed. * BPH for which he will continue on finasteride and on Hytrin. * Obesity. * Hypertension. * Anxiety. * Status post surgery on the neck for cervical spinal stenosis. The patient will be given pain medication and receive physical therapy. Plan discussed with: Patient Date of Service: Mar 21, 2025 Billing Provider: DIETER LUDWIG MD Common Visit Codes: [id number] INP/OBS CARE(HIGH) Date of Service: Mar 21, 2025 Billing Provider: DIETER LUDWIG MD Common Visit Codes: [id number] INP/OBS CARE(HIGH) DIETER LUDWIG MD Mar 21, 2025 16:34
[2025-03-21 16:52] VITALS: BP 121/77; PULSE 73; RESP 18; TEMP 97.8; O2SAT 94
== END 2025-03-21 17:33 | disposition home or self-care (01) | DRG 472 ==
LOC: SUR 08:12 → OVERFLOW 14:21 → TELE-WESTW 18:38
PROVIDERS: ADMIT Internal Medicine; ATTEND Internal Medicine
PROC: 0RG20A0 Fusion of 2 or more Cervical Vertebral Joints with Interbody Fusion Device, Anterior Approach, Anterior Column, Open Approach (ICD-10-PCS; 2025-03-19)
PROC: 00NW0ZZ Release Cervical Spinal Cord, Open Approach (ICD-10-PCS; 2025-03-19)
PROC: 01N10ZZ Release Cervical Nerve, Open Approach (ICD-10-PCS; 2025-03-19)
PROC: 0RB30ZZ Excision of Cervical Vertebral Disc, Open Approach (ICD-10-PCS; principal; 2025-03-19 11:05)
DX: M48.02 Spinal stenosis, cervical region (principal); M50.01 Cervical disc disorder with myelopathy, high cervical region; M50.021 Cervical disc disorder at C4-C5 level with myelopathy; M50.022 Cervical disc disorder at C5-C6 level with myelopathy; E66.9 Obesity, unspecified; I10 Essential (primary) hypertension; Z68.33 Body mass index [BMI] 33.0-33.9, adult; F41.9 Anxiety disorder, unspecified; M50.221 Other cervical disc displacement at C4-C5 level; G89.18 Other acute postprocedural pain; R33.8 Other retention of urine; N40.1 Benign prostatic hyperplasia with lower urinary tract symptoms; Z82.49 Family history of ischemic heart disease and other diseases of the circulatory system; Z83.3 Family history of diabetes mellitus; Z88.8 Allergy status to other drugs, medicaments and biological substances; Z81.1 Family history of alcohol abuse and dependence
CPT/HCPCS: 36415; 72040; 76000; 80053; 81001; 85025; 85610; 85730; 86850; 86900; 86901; 97110; 97116; 97163; G0378; J0330; J1100; J1956; J2250; J2405; J2704; J7042